=== PATIENT | male | born 1940 | race Caucasian/White ===

== ENCOUNTER 2017-04-11 07:17 | Inpatient (IN) | payer MEDICARE, OTHER ==
[2017-03-28 11:03] VITALS: BMI 35.0
--- NOTE | 2017-03-28 11:48 | PAT Medication Instructions ---
Service Date Mar 28, 2017. Current Home Medication List Aspirin (Aspirin Ec), 81 MG PO HS Atorvastatin (Lipitor), 80 MG PO HS Budesonide/Formoterol Fumarate (Symbicort 160/4.5 Inhaler ), 2 PUFFS INH BID Cholecalciferol (Vitamin D3), 1 TAB PO BID Cinnamon (Cinnamon), 1,000 MG PO BID Finasteride (Proscar), 5 MG PO QAM Levothyroxine Sodium (Levothyroxine Sodium), 1 TAB PO QAM Lisinopril (Zestril), 20 MG PO HS Metformin Hcl (Glucophage Ext Rel), 1,000 MG PO BID Sotalol Hcl (Sotalol Hcl), 0.5 TAB PO BID Tiotropium [place] (Spiriva Handihaler), 1 CAP INH QAM Warfarin Sod (Jantoven), 5 MG PO QPM PRN for D Medication Instructions For Your Scheduled Surgery Warfarin Sod (Jantoven), 5 MG PO QPM PRN (check with surgeon and family doctor for instructions) - Hold the following medications 2 weeks prior to surgery: Cinnamon (Cinnamon), 1,000 MG PO BID - Hold the following medications 48 hours prior to surgery: Metformin Hcl (Glucophage Ext Rel), 1,000 MG PO BID - Hold the following medications evening prior to surgery: Lisinopril (Zestril), 20 MG PO HS - Hold the following medications the morning of surgery: Cholecalciferol (Vitamin D3), 1 TAB PO BID - Take the following medications the morning of surgery with a sip of water: Tiotropium [place] (Spiriva Handihaler), 1 CAP INH QAM Sotalol Hcl (Sotalol Hcl), 0.5 TAB PO BID Levothyroxine Sodium (Levothyroxine Sodium), 1 TAB PO QAM Finasteride (Proscar), 5 MG PO QAM Budesonide/Formoterol Fumarate (Symbicort 160/4.5 Inhaler ), 2 PUFFS INH BID - Take the following medications as scheduled the night before surgery: Sotalol Hcl (Sotalol Hcl), 0.5 TAB PO BID Cholecalciferol (Vitamin D3), 1 TAB PO BID Budesonide/Formoterol Fumarate (Symbicort 160/4.5 Inhaler ), 2 PUFFS INH BID Aspirin (Aspirin Ec), 81 MG PO HS Atorvastatin (Lipitor), 80 MG PO HS If you have any questions please call us at [phone] or [phone] ( Shira) or [phone]
--- NOTE | 2017-03-28 12:33 | DIAGNOSTIC IMAGING REPORT ---
TWO VIEW CHEST CLINICAL HISTORY: Preoperative examination. FINDINGS: PA and lateral chest radiographs are obtained. No prior studies are available for comparison at the time of dictation. The heart is enlarged and there is atherosclerotic calcification of the thoracic aorta. The pulmonary vasculature is noncongested. Enlargement of the central pulmonary arteries suggests pulmonary artery hypertension. Nonspecific interstitial thickening is noted. Scattered calcified granulomas are observed. There is no airspace consolidation or pleural effusion. There is no pneumothorax. The skeletal structures are osteopenic. Degenerative change is present throughout the thoracic spine. An aortic stent graft is noted in the upper abdomen. IMPRESSION: Cardiomegaly with evidence of pulmonary artery hypertension. There is no active disease in the chest. Electronically signed by: Steffen Reich M.D. 03/28/2017 12:32 PM Dictated Date/Time: 03/28/2017 12:30 PM
[2017-03-28 12:35] LABS: BASO % 0.6 %; BASO ABS # 0.06 K/uL (0-0.2); COMPLETE YES; EOS % 3.7 %; HEMATOCRIT 43.5 % (42-52); IG% 0.3 %; LYMPH % 24.5 %; LYMPH ABS # 2.61 K/uL (1.2-3.4); MEAN CELL VOLUME 91.8 fL (80-100); MEAN CORPUSCULAR HEMOGLOBIN 30.6 pg (25-34); MEAN CORPUSCULAR HGB CONC 33.3 g/dl (32-36); MEAN PLATELET VOLUME 9.7 fL (7.4-10.4); NEUT % 63.9 %; PLATELET COUNT 200 K/uL (130-400); RED BLOOD COUNT 4.74 M/uL (4.7-6.1); WHITE BLOOD COUNT 10.64 K/uL (4.8-10.8)
[2017-03-28 12:36] LABS: URINE APPEARANCE CLEAR (CLEAR); URINE BILIRUBIN NEG (NEG); URINE COLOR YELLOW; URINE NITRITE NEG (NEG); URINE SPECIFIC GRAVITY 1.018 (1.000-1.030); UROBILINOGEN NEG (NEG)
[2017-03-28 12:40] LABS: MANUAL MICROSCOPIC REQUIRED? NO; REVIEW REQ? NO
[2017-03-28 14:03] LABS: BUN/CREATININE RATIO 16.5 (10-20); CALCIUM 9.9 mg/dl (8.5-10.1); CREATININE 1.3 mg/dl (0.60-1.40); POTASSIUM 5.4 mmol/L (3.5-5.1)
[2017-04-11] VITALS (10 sets, daily range): BP systolic 114–172; BP diastolic 73–89; PULSE 63–96; TEMP 36.5–36.8; O2SAT 94–97; Ht 175.3 cm; Wt 108.4 kg
[~2017-04-11] VITALS: Ht 175.3 cm; Wt 108.4 kg
[~2017-04-11 07:17] MED LIST: ASPI81TA28 PO; ATOR-26 PO; CEFAZOLIN 2000 MG/60 ML D5W IV SCH; CHOL1000 PO; CINN1CAP2 PO; FINA5TAB PO; LACTATED RINGER'S 1000ML 1,000 ML IV SCH; LEVO50TA6 PO; LISI-725 PO; METF1TAB53 PO; SOTA80TA PO; SPRIN/30 INH; SYMIN160 INH; WARF5TAB7 PO
[2017-04-11] MEDS ORDERED: MIDAZOLAM HCL 1 MG/ML 2ML VIAL ONE (08:10)
[2017-04-11] MEDS ORDERED: FENTANYL CITRATE INJ 50 MCG/1 ML 2 ML VIAL ONE ×5 (08:10→11:47)
[2017-04-11] MEDS ORDERED: EpHEDrine SULFATE INJ 50 MG/ML AMP IV PRN (08:15)
[2017-04-11] MEDS ORDERED: ATROPINE SULFATE 0.1 MG/ML 5ML SYR IV PRN (08:15)
[2017-04-11] MEDS ORDERED: FENTANYL CITRATE INJ 50 MCG/1 ML 2 ML VIAL IV PRN (08:15)
[2017-04-11] MEDS ORDERED: ONDANSETRON INJ 2 MG/ML 2 ML VIAL IV PRN ×2 (08:15→11:45)
--- NOTE | 2017-04-11 08:20 | History & Physical Bridge Note ---
H&P Re-Evaluation Bridge Note: I have examined the patient, reviewed the History & Physical and in the interval since the performance of the History & Physical I have noted the following changes of clinical significance: No changes noted
--- NOTE | 2017-04-11 08:22 | History and Physical ---
History & Physical Date Apr 11, 2017. Chief Complaint back and leg pain History of Present Illness The patient is a 76 year old male with complaints of Additional History Hepatic Disease: No Endocrine Disorder: No Kidney Disease: No Hypertension: No Heart Disease: No Bleeding Tendencies: No Infectious Diseases: No Allergies Coded Allergies: Morphine (Unverified Allergy, Unknown, ITCHING LOCALIZED SWELLING RASH, 09/16) Sulfa Antibiotics (Unverified Allergy, Unknown, UNKNOWN, 04/11/17) Home Medications Scheduled Aspirin (Aspirin Ec), 81 MG PO HS Atorvastatin (Lipitor), 80 MG PO HS Budesonide/Formoterol Fumarate (Symbicort 160/4.5 Inhaler ), 2 PUFFS INH BID Cholecalciferol (Vitamin D3), 1 TAB PO BID Cinnamon (Cinnamon), 1,000 MG PO BID Finasteride (Proscar), 5 MG PO QAM Levothyroxine Sodium (Levothyroxine Sodium), 1 TAB PO QAM Lisinopril (Zestril), 20 MG PO HS Metformin Hcl (Glucophage Ext Rel), 1,000 MG PO BID Sotalol Hcl (Sotalol Hcl), 0.5 TAB PO BID Tiotropium [place] (Spiriva Handihaler), 1 CAP INH QAM Scheduled PRN Warfarin Sod (Jantoven), 5 MG PO QPM PRN for D Physical Examination Skin: warm/dry, no rash Eyes: normal inspection, EOMI, sclerae normal ENT: normal ENT inspection, pharynx normal Head: normocephalic, atraumatic Neck: supple, no adenopathy, trachea midline Respiratory/Chest: lungs clear, normal breath sounds, no respiratory distress Cardiovascular: regular rate, rhythm, no edema, no murmur Abdomen / GI: normal bowel sounds, non tender Back: normal inspection Extremities: normal inspection, normal range of motion Neurologic/Psych: no motor/sensory deficits, alert, normal reflexes, oriented x 3 Diagnosis lumbar stenosis Plan of Treatment decompression fusion L2-S1
[2017-04-11 08:24] LABS: INR 1.1 (0.9-1.1); PARTIAL THROMBOPLASTIN RATIO 0.9; PROTHROMBIN TIME (PATIENT) 11.3 SECONDS (9.0-12.0)
[2017-04-11] MEDS ORDERED: BACITRACIN 50000 UNIT VIAL ONE (08:44)
[2017-04-11] MEDS ORDERED: SODIUM CHLORIDE 0.9% PF 50 ML VIAL ONE (08:44)
[2017-04-11] MEDS ORDERED: BUPIVACAINE/EPINEPHRINE 0.25% 1:200,000 30 ML VIAL ONE (08:44)
[2017-04-11] MEDS ORDERED: ALBUMIN HUMAN 5% 12.5 GM/250 ML VIAL IV ONE (08:52)
[2017-04-11] MEDS ORDERED: HYDROmorphone INJ 2 MG/ML SYR/VIAL ONE ×3 (09:27→11:47)
[2017-04-11] MEDS ORDERED: SODIUM CHLORIDE 0.9% 1000ML 1,000 ML IV SCH (11:42)
[2017-04-11] MEDS ORDERED: ESMOLOL HCL 10 MG/ML 10 ML VIAL ONE ×2 (11:45→11:49)
[2017-04-11] MEDS ORDERED: FAMOTIDINE 20 MG TAB PO PRN (11:45)
[2017-04-11] MEDS ORDERED: BISACODYL 10 MG SUPP PR PRN (11:45)
[2017-04-11] MEDS ORDERED: ACETAMINOPHEN IV 100 ML IV PRN (11:45)
[2017-04-11] MEDS ORDERED: DO NOT ADMINISTER PNEUMOCOCCAL VACCINE PRN ×2 (11:45)
[2017-04-11] MEDS ORDERED: PROPOFOL IV EMULSION 10 MG/ML 20 ML VIAL IV ONE ×2 (11:45→11:47)
[2017-04-11] MEDS ORDERED: hydrOXYzine HCL 25 MG TAB PO PRN (11:45)
[2017-04-11] MEDS ORDERED: MAGNESIUM HYDROXIDE SUSP 30 ML UDC PO PRN (11:45)
[2017-04-11] MEDS ORDERED: DO NOT ADMINISTER FLU VACCINE PRN ×3 (11:45)
[2017-04-11] MEDS ORDERED: LABETALOL HCL IV 5 MG/ML 20ML IV ONE (11:45)
[2017-04-11] MEDS ORDERED: LIDOCAINE HCL 2% 2 ML VIAL (20MG/ML) ONE (11:45)
[2017-04-11] MEDS ORDERED: NALOXONE HCL 0.4 MG/1 ML VIAL/CARP IV PRN ×2 (11:45)
[2017-04-11] MEDS ORDERED: PROMETHAZINE HCL INJ 12.5 MG in SODIUM CHLORIDE 0.9% 50ML 50 ML IV PRN (11:45)
[2017-04-11] MEDS ORDERED: DEXAMETHASONE SOD INJ 4 MG/ML VIAL ONE (11:45)
[2017-04-11] MEDS ORDERED: EpHEDrine SULFATE 50MG/5ML SYR ONE (11:45)
[2017-04-11] MEDS ORDERED: METOCLOPRAMIDE HCL INJ 5 MG/ML 2 ML VIAL IV PRN (11:45)
[2017-04-11] MEDS ORDERED: SOD PHOSPHATE/SOD BIPHOSPHATE ENEMA 132 ML BTL PR PRN (11:45)
[2017-04-11] MEDS ORDERED: ALUMINUM/MAGNESIUM SUSP 30 ML UDC PO PRN (11:45)
[2017-04-11] MEDS ORDERED: ONDANSETRON INJ 2 MG/ML 2 ML VIAL ONE ×2 (11:45→11:49)
[2017-04-11] MEDS ORDERED: LORAZEPAM 0.5 MG TAB PO PRN (11:45)
[2017-04-11] MEDS ORDERED: ROCURONIUM BROMIDE 10 MG/ML 5 ML VIAL ONE (11:45)
[2017-04-11] MEDS ORDERED: ACETAMINOPHEN 500 MG TAB PO PRN (11:45)
[2017-04-11] MEDS ORDERED: LORAZEPAM INJ 0.5 MG in SYRINGE 0 ML IV PRN (11:45)
--- NOTE | 2017-04-11 11:48 | DIAGNOSTIC IMAGING REPORT ---
Lumbar spine LUMBAR SPINE 2 OR 3 VIEW CLINICAL HISTORY: L2-S1 DECOMPRESSION/FUSION/INTERBODY TECHNIQUE: Image intensifier COMPARISON STUDY: None FINDINGS: Image intensifier used for lumbar laminectomy and fusion IMPRESSION: Image intensifier utilization for lumbar laminectomy and fusion Electronically signed by: Tip Oreilly M.D. 04/11/2017 11:47 AM Dictated Date/Time: 04/11/2017 11:46 AM
[2017-04-11] MEDS ORDERED: NEOSTIGMINE METHYLSULFATE 1 MG/ML 10ML VIAL ONE (11:49)
[2017-04-11] MEDS ORDERED: GLYCOPYRROLATE INJ 0.2 MG/ML VIAL ONE (11:49)
--- NOTE | 2017-04-11 11:50 | [facility] Operative Report ---
Operative Report Operative Date Apr 11, 2017. Pre-Operative Diagnosis Lumbar Stenosis Post-Operative Diagnosis Lumbar Stenosis Procedure(s) Performed #1 lumbar decompression medial facetectomies foraminotomies L2 3 L3 4 045 L5-S1. 2 posterior spinal fusion L2-3 L3 4 L4 5 L5-S1. #3 placement of posterior segmental instrumentation L2 to S1 including a cross-link. #4 interbody fusion L4 5. #5 placement of peek cage 11 x 22 mm at L4 5. 6 placement of locally harvested morcellized autograft in the posterior lateral gutters. #7 placement of infuse collagen sponge combined with Master graft in the posterior lateral gutters and DBM in the interbody space. Surgeon Dr. Marc Rutledge Powder Worker Surgeon(s) Esthela Sandoval PA-C Estimated Blood Loss 800ml Findings Severe spinal stenosis Specimens None per surgeon Description of Procedure Patient was met with preoperatively case discussed all questions were addressed. At that point patient was taken back to the operative suite and after undergoing successful general intubation the form she was placed in a prone position on the Jose table on top of the Babatunde frame. All bony prominences were well-padded eyes were inspected to ensure there is no external pressure placed upon them. This point the lumbar spine was prepped and draped in the normal sterile fashion. Sharp dissection with the assistance of Bovie cautery performed onto an exposing the lamina and transverse processes of L2 3 4 5 and the sacral alar bilaterally. Color cephalad fashion laminectomy bilateral medial facetectomies of L543 and 2 was performed addressing severe lateral recess and foraminal stenosis. After this complete pedicle screws were placed in L2 3 4 5 S1 levels bilaterally with the assistance of fluoroscopy and the probably size mu placed. Through a transforaminal approach on the right a complete discectomy of L4 5 was performed and plate create a subcortical bleeding bone and a 11 x 26 mm peek cage filled with DBM tapped in position. Rods and locked and final position a cross-link locked in position. Transverse processes of 2345 and the sacral alar burred to subcortical bleeding bone. Infuse collagen sponge mask graft locally harvested morcellized autograft placed in the posterior lateral gutters 15 round WILLIAM drain inserted. Incision was then closed with 1 Vicryl in the fascia 2-0 Vicryl subcutaneously for Monocryl for Taylor closure Steri-Strips sterile dressing placed patient was taken to PACU stable condition. Please note Esthela Moreno was present throughout the entire procedure involved in patient positioning complex portions of the procedure and final skin closure. I attest to the content of the Intraoperative Record and any orders documented therein. Any exceptions are noted below.
[2017-04-11] MEDS ORDERED: PHARMACY GLYCEMIC MGMT CONSULT PRN (11:51)
[2017-04-11] MEDS ORDERED: FLOSEAL HEMOSTATIC MATRIX 10ML TOP ONE (11:53)
[2017-04-11] MEDS ORDERED: HYDROmorphone HCL 0.5MG/ML 50 ML CASSETTE ONE (12:10)
--- NOTE | 2017-04-11 12:39 | Anesthesiology Progress Note ---
Anesthesia Post Op Note Date & Time Apr 11, 2017 at 12:39 Vital Signs Pain Intensity: 0 Vital Signs Past 12 Hours Date Time Temp Pulse Resp B/P (MAP) Pulse Ox O2 Delivery O2 Flow Rate FiO2 04/11/17 12:35 37.1 74 21 165/86 98 Nasal Cannula 4 04/11/17 12:25 71 16 174/75 98 Mask 8 04/11/17 12:15 75 19 169/72 98 Mask 8 04/11/17 12:05 36.5 81 16 169/72 97 Mask 8 04/11/17 08:16 36.8 63 20 172/89 94 Room Air Notes Mental Status: alert / awake / arousable, participated in evaluation Pt Amnestic to Procedure: Yes Nausea / Vomiting: adequately controlled Pain: adequately controlled Airway Patency, RR, SpO2: stable & adequate BP & HR: stable & adequate Hydration State: stable & adequate Anesthetic Complications: no major complications apparent
[2017-04-11] MEDS ORDERED: HYDROmorphone INJ 1 MG/ML SYR IV PRN (14:00)
--- NOTE | 2017-04-11 14:37 | Pharmacy Progress Note ---
Glycemic Control Intl Consult Date of Service Apr 11, 2017. Scope Glycemic Pharmacist consulted by Dr Rutledge on 04/11/2017 for glycemic control and to write orders per [facility] inpatient glycemic control protocol Objective Weight (Kilograms): 108.400 Accuchecks BSG (last 24hrs): Test 04/11/17 07:56 04/11/17 12:17 Bedside Glucose 161 mg/dl (70-99) 157 mg/dl (70-99) Recent Pertinent Medications Outpatient Anti-diabetic Regimen: * metformin 1 gm XR PO BID Risk Factors for Insulin Resistance: * Steroids: dexamethasone 12 mg IV x 1 in OR then dexamethasone 6 mg IV x 3 doses * Recent Surgery: lumbar surgery POD 0 * Diet: type 2 diabetic diet Assessment & Plan ASSESSMENT: * ADA & AACE recommend a goal blood sugar range 140-180 mg/dl for the majority of critically ill & non-critically ill patients. However, more stringent targets may be selected in individual cases. Will utilize more stringent goal of 110-140mg/dl based on patient age & comorbidities. Additionally, tighter glycemic control is warranted to facilitate wound healing. * Mr Mcconnell is a 76 y/o M who is admitted under Dr Rutledge's service for lumbar surgery. He has a PMH of diabetes controlled on oral medications. He has an unknown A1C. He received large doses of steroids in the OR and after surgery; this necessitates aggressive insulin dosing. * For today, Lantus will be started at weight based stress of 3 (Lantus 25 units x 1), this will be reduced to weight based stress of 2 for tomorrow morning and weight based stress of 1 for tomorrow evening. By POD 2, Lantus requirements should be greatly reduced. Overnight accuchecks are added to ensure adequate coverage overnight. * For correctional insulin, weight based stress of 2 will be adopted. I estimate that by POD 2, oral medications will be resumed assuming kidney function is normal and oral intake is excellent. At that point, I will loosen the correctional insulin. * Pt is maintained on oral antidiabetic agents as an outpatient * Oral agents are not recommended for inpatient use d/t drug interactions, changing PO intake, and difficulty titrating for acute hyper/hypoglycemia. ADA recommends re-initiating outpatient oral agents 1-2 days prior to discharge if/ when appropriate if they were held on admission. * Will hold oral agents for admission and utilize SQ basal bolus insulin regimen which is the recommended regimen for inpatient glycemic control. * Will initiate weight based insulin dosing for insulin josee patient and titrate based on BSG trends. PLAN FOR INPATIENT GLYCEMIC CONTROL: * Holding outpatient oral diabetes medications * Basal insulin with LANTUS 25 units SQ x 1 tonight, 18 units SQ x 1 tomorrow morning, and then 10 units SQ x 1 tomorrow evening. * Correctional Insulin with NOVOLOG per scale ACHS + at midnight and 0400 * Goal Range: Low 110 mg/dL - High 140 mg/dL * Correction Factor: 15 mg/dL/unit * Nutritional / Prandial insulin per carb ratio of 1 unit per 5 grams CHO consumed * Please note that the plan above was derived based on current level of insulin resistance and hospital stress. These recommendations are appropriate for inpatient admission only. Plan of care upon discharge will need to be reassessed to avoid potential outpatient hypo/hyperglycemia. Thank you.
[2017-04-11] MEDS: HYDROmorphone HCL 0.5MG/ML 50 ML CASSETTE IV PRN ×2 (15:19→23:12)
[2017-04-11] MEDS: SODIUM CHLORIDE 0.9% 1000ML 1,000 ML IV SCH ×2 (15:23→21:48)
[2017-04-11] MEDS: CEFAZOLIN IV 2,000 MG in DEXTROSE 5% 50ML 50 ML IV SCH ×2 (15:24→21:46)
[2017-04-11] MEDS: INSULIN ASPART 100 UNITS/ML 3 ML PEN SC SCH ×3 (15:26→21:46)
--- NOTE | 2017-04-11 16:42 | Medical Consult ---
Consultation Date of Consultation: Apr 11, 2017. Attending Physician: Marc Rutledge D.O. History of Present Illness Bandar Mcconnell is a 76yo man with PMH of lumbar stenosis with neurogenic claudication, h/o 4 PEs (last in 2003, on coumadin), CAD s/p stent in 2007, DM II and renal artery stenosis who is s/p a spinal decompression fusion of L2-S1 performed today (POD#0). Pt states that pain is well controlled and denies any weakness, tingling or numbness to his lower extremities. No chest pain, shortness of breath, nausea or vomiting. Is urinating with mccann in place. Of note, patient is currently not on anticoagulation s/p spinal procedure but does have a significant history of coagulability with multiple PEs. Past Medical/Surgical History Medical Problems: (1) COPD (chronic obstructive pulmonary disease) Status: Chronic (2) Coronary artery disease Permanent Comment: s/p RCA stent in 2007 Status: Chronic (3) DM II (diabetes mellitus, type II), controlled Status: Chronic (4) HLD (hyperlipidemia) Status: Chronic (5) HTN (hypertension) Status: Chronic (6) PE (pulmonary thromboembolism) Permanent Comment: x4; most recent PE in 2003 Status: Chronic (7) Renal artery stenosis Status: Chronic Surgical Problems: (1) History of AAA (abdominal aortic aneurysm) repair Status: Chronic (2) History of appendectomy Status: Chronic (3) History of arthroscopy of left shoulder Status: Chronic (4) S/P lateral meniscectomy of left knee Status: Chronic (5) Status post lumbar spine surgery for decompression of spinal cord Permanent Comment: Decompression fusion L2-S1 Status: Chronic Family History Diabetes mellitus MOTHER FH: CAD (coronary artery disease) FATHER Stroke BROTHER Social History Smoking Status: Former Smoker (quit in 2003) Smokeless Tobacco Use: No Alcohol Use: socially Drug Use: none Allergies Coded Allergies: Morphine (Unverified Allergy, Unknown, ITCHING LOCALIZED SWELLING RASH, 09/16) Sulfa Antibiotics (Unverified Allergy, Unknown, UNKNOWN, 04/11/17) Home Medications Home Meds and Scripts Medications Dose Route/Sig Max Daily Dose Days Date Category Dose Instructions Jantoven (Warfarin Sodium) 5 Mg Tab 5 Mg PO QPM PRN 03/28/17 Reported FOLLOWS PATTERN 5 MG/5 MG/7.5 MG AND REPEAT Proscar (Finasteride) 5 Mg Tab 5 Mg PO QAM 03/28/17 Reported Levothyroxine Sodium 50 Mcg Tab 1 Tab PO QAM 90 03/28/17 Reported Cinnamon 500 Mg Cap 1,000 Mg PO BID 03/28/17 Reported Lipitor (Atorvastatin Calcium) 80 Mg Tab 80 Mg PO HS 03/28/17 Reported Sotalol Hcl 80 Mg Tab 0.5 Tab PO BID 90 03/28/17 Reported Zestril (Lisinopril) 20 Mg Tab 20 Mg PO HS 03/28/17 Reported Glucophage Ext Rel (Metformin Hcl) 1,000 Mg Tab 1,000 Mg PO BID 03/28/17 Reported Aspirin Ec (Aspirin) 81 Mg Tab 81 Mg PO HS 03/28/17 Reported Symbicort 160/4.5 Inhaler (Budesonide/Formoterol Fumarate) Aero 2 Puffs INH BID 03/28/17 Reported Spiriva Handihaler (Tiotropium [place]) 30 Puff/540 Mcg Aerp 1 Cap INH QAM 03/28/17 Reported Vitamin D3 (Cholecalciferol) 1,000 Unit Tab 1 Tab PO BID 90 03/28/17 Reported Current Inpatient Medications Current Inpatient Medications Medications (Trade) Dose Ordered Sig/Sunita Route Start Time Stop Time Status Last Admin Dose Admin Cefazolin Sodium 60 ml @ 100 mls/hr PREOP IV 04/11/17 06:00 04/11/17 18:00 Dexamethasone Sodium Phosphate 6 mg/Syringe 1.5 ml @ 1 mls/min Q8H IV 04/11/17 16:00 04/12/17 08:02 Promethazine HCl 12.5 mg/Sodium Chloride 50.5 ml @ 202 mls/hr Q6H PRN IV 04/11/17 11:45 05/11/17 11:44 Ondansetron HCl (Zofran Inj) 4 mg Q6H PRN IV 04/11/17 11:45 05/11/17 11:44 Metoclopramide HCl (Reglan Inj) 10 mg Q6H PRN IV 04/11/17 11:45 05/11/17 11:44 Lorazepam (Ativan Tab) 0.5 mg Q8H PRN PO 04/11/17 11:45 05/11/17 11:44 Lorazepam 0.5 mg/ Syringe 0.25 ml @ 1 mls/min Q8H PRN IV 04/11/17 11:45 05/11/17 11:44 Pneumococcal Polysaccharide Vaccine 1 ea PRN PRN N/A 04/11/17 11:45 05/11/17 11:44 Influenza Virus Vacc Triv Types A&B 1 ea PRN PRN N/A 04/11/17 11:45 05/11/17 11:44 Polyethylene (Miralax Powder Packet) 17 gm Q6 PO 04/13/17 06:00 05/13/17 05:59 Bisacodyl (Dulcolax Supp) 10 mg DAILY PRN UT 04/11/17 11:45 05/11/17 11:44 Magnesium Hydroxide (Milk Of Magnesia Susp) 30 ml DAILY PRN PO 04/11/17 11:45 05/11/17 11:44 Hydromorphone HCl (Dilaudid Inj) 0.5 mg Q3H PRN IV 04/12/17 06:00 04/26/17 05:59 Oxycodone HCl (Roxicodone Immediate Rel Tab) 5-10mg prn moderate to sev... Q4H PRN PO 04/12/17 06:00 04/26/17 05:59 Cefazolin Sodium 2000 mg/Dextrose 60 ml @ 100 mls/hr Q8H IV 04/11/17 14:00 04/11/17 22:35 04/11/17 15:24 100 MLS/HR Sodium Chloride 1,000 ml @ 150 mls/hr Q6H40M IV 04/11/17 11:42 05/11/17 11:41 04/11/17 15:23 150 MLS/HR Acetaminophen (Tylenol Tab) 1,000 mg Q8H PRN PO 04/11/17 11:45 05/11/17 11:44 Acetaminophen 100 ml @ 400 mls/hr Q8H PRN IV 04/11/17 11:45 05/11/17 11:44 Naloxone HCl (Narcan Inj) 0.1 mg Q5M PRN IV 04/11/17 11:45 05/11/17 11:44 Senna/Docusate Sodium (Senokot S Tab) 2 tab HS PO 04/11/17 21:00 05/11/17 20:59 Sodium Biphosphate/ Sodium Phosphate (Fleet Enema) 132 ml ONE PRN UT 04/11/17 11:45 05/11/17 11:44 Hydroxyzine HCl (Vistaril Tab) 25 mg Q8H PRN PO 04/11/17 11:45 05/11/17 11:44 Al Hydroxide/Mg Hydroxide (Maalox Susp) 30 ml Q6H PRN PO 04/11/17 11:45 05/11/17 11:44 Famotidine (Pepcid Tab) 20 mg Q12 PRN PO 04/11/17 11:45 05/11/17 11:44 Diphenhydramine HCl (Benadryl Cap) 25 mg Q6H PRN PO 04/11/17 11:45 05/11/17 11:44 Miscellaneous Information (Discontinue DIAL EQUIPMENT ENGINEER) 1 ea TODAY@0600 N/A 04/12/17 06:00 04/12/17 06:01 Naloxone HCl (Narcan Inj) 0.1 mg Q5M PRN IV 04/11/17 11:45 04/12/17 06:00 Hydromorphone HCl (Dilaudid Senior Electronics Design Engineer) 25 mg PRN PRN IV 04/11/17 11:45 04/12/17 06:00 04/11/17 15:19 25 MG Sodium Chloride 1,000 ml @ 15 mls/hr Q24H IV 04/11/17 11:42 04/12/17 06:00 Aspirin (Ecotrin Tab) 81 mg HS PO 04/11/17 21:00 05/11/17 20:59 Atorvastatin Calcium (Lipitor Tab) 80 mg HS PO 04/11/17 21:00 05/11/17 20:59 Budesonide/ Formoterol Fumarate (Symbicort 160/ 4.5 Inh) 2 puffs BID INH 04/11/17 21:00 05/11/17 20:59 Finasteride (Proscar Tab) 5 mg QAM PO 04/12/17 09:00 05/12/17 08:59 Levothyroxine Sodium (Synthroid Tab) 50 mcg DAILYBB PO 04/12/17 06:00 05/12/17 05:59 Lisinopril (Zestril Tab) 20 mg HS PO 04/11/17 21:00 05/11/17 20:59 Sotalol HCl (Betapace Tab) 40 mg BID PO 04/11/17 21:00 05/11/17 20:59 Tiotropium [place] (Spiriva Handihaler Inhaler) 1 puff QAM INH 04/12/17 09:00 05/12/17 08:59 Miscellaneous Information (Consult Glycemic Management Pharmacy) 1 ea UD PRN N/A 04/11/17 11:51 05/11/17 11:50 Hydromorphone HCl (Dilaudid Inj) 1 mg Q3H PRN IV 04/12/17 06:00 04/26/17 05:59 Insulin Aspart (novoLOG ASPART) SLIDING SCALE ACHS SC 04/11/17 14:00 05/11/17 13:59 04/11/17 15:26 10 UNITS Insulin Glargine (Lantus Solostar Pen) 25 units NOW ONCE NC 04/11/17 17:00 04/11/17 17:01 Insulin Glargine (Lantus Solostar Pen) 18 units QAM NC 04/12/17 09:00 04/12/17 09:01 Insulin Glargine (Lantus Solostar Pen) 10 units QPM NC 04/12/17 21:00 04/12/17 21:01 Insulin Aspart (novoLOG ASPART) SLIDING SCALE TODAY@0000,0400 NC 04/12/17 00:00 04/12/17 04:01 Review of Systems ROS per HPI, all other systems reviewed and negative. Physical Exam Date Time Temp Pulse Resp B/P (MAP) Pulse Ox O2 Delivery O2 Flow Rate FiO2 04/11/17 15:10 36.6 92 18 114/78 (90) 97 Nasal Cannula 4.0 04/11/17 14:23 36.8 91 17 138/87 (104) 96 Nasal Cannula 4.0 04/11/17 14:09 95 Nasal Cannula 4.0 04/11/17 14:01 95 Nasal Cannula 4.0 04/11/17 13:48 36.5 80 16 144/85 (104) 96 Nasal Cannula 4.0 04/11/17 13:00 65 12 160/83 96 Nasal Cannula 4 04/11/17 12:45 72 17 167/84 96 Nasal Cannula 4 04/11/17 12:35 37.1 74 21 165/86 98 Nasal Cannula 4 04/11/17 12:25 71 16 174/75 98 Mask 8 04/11/17 12:15 75 19 169/72 98 Mask 8 04/11/17 12:05 36.5 81 16 169/72 97 Mask 8 04/11/17 08:16 36.8 63 20 172/89 94 Room Air General Appearance: no apparent distress, + obese Head: normocephalic Eyes: normal inspection Neck: supple Respiratory/Chest: chest non-tender, lungs clear, normal breath sounds Cardiovascular: regular rate, rhythm Abdomen/GI: normal bowel sounds, non tender, soft Back: + pertinent finding (S/p back surgery. Drain visualized with 45cc of serosanguinous fluid. Pedal strength against resistance strong bilaterally. ) Extremities/Musculoskelatal: no calf tenderness, no pedal edema Neurologic/Psych: no motor/sensory deficits, normal mood/affect, oriented x 3 Skin: normal color, warm/dry Lymphatic: no adenopathy Laboratory Results Last 24 Hours Test 04/11/17 07:56 04/11/17 08:06 04/11/17 11:37 04/11/17 12:17 Bedside Glucose 161 mg/dl 157 mg/dl Prothrombin Time 11.3 SECONDS Prothromb Time International Ratio 1.1 Activated Partial Thromboplast Time 24.2 SECONDS Partial Thromboplastin Ratio 0.9 Hemoglobin 11.3 g/dL Hematocrit 33.0 % Assessment & Plan Pt is POD#0 s/p spinal decompression fusion L2-S1 and is doing well. S/p Decompression fusion L2-S1 -followed by ortho -activity and would care orders as per ortho -pain control with bowel regimen -will monitor H&H, transfuse PRN History of PEs -discussed restarting anticoagulation with Dr. Rutledge. Plan to continue monitoring drain output but plan to resume anticoagulation on Sunday DM II, controlled -on sliding scale insulin plus basal -pharmacy consulted by ortho for glycemic management CAD s/p RCA stent in 2007, HTN -negative nuclear stress test in 2016 -continue baby aspirin, atorvastatin H/o paroxysmal afib -rhythm controlled on sotalol -on Coumadin, however currently being held due to surgery DVT ppx -as per ortho Thank you for this consultation. We will follow the patient with you during their hospital stay. You can reach a member of the [facility] Hospitalist Team 23/04 via pager @ . Attending Addendum Pt was seen and examined. Agreed with Margarita ARMANDO exam, assessment and Plan. Failed outpatient conservative management. S/P decompression and fusion surgery performed by Dr. Rutledge. Pt lying in bed with no distress. Denies any chest pain , palpitation, dizziness and SOB. General- no acute distress Head- atraumatic Eyes- PERRL, EOMI ENT- oropharynx clear Neck- supple, no JVD Lungs- clear to auscultation Heart- regular rhythm A/P S/P L2-S1 DECOMPRESSION / FUSION - POD#0 - continue pain control - Incentive spirometry - PT/OT -Hbg stable Hx PE -Anticoagulant has been on hold -Will resume anticoagulant once bleeding control DVT PROPHYLAXIS - deferred to ortho CODE STATUS FULL CODE
[2017-04-11] MEDS: DEXAMETHASONE INJ 6 MG in SYRINGE 0 ML IV SCH (16:46)
[2017-04-11] MEDS ORDERED: INSULIN GLARGINE SOLOSTAR 100 UNITS/ML 3 ML PEN SC ONE (17:00)
[2017-04-11] MEDS: ATORVASTATIN 40 MG TAB PO SCH (21:35)
[2017-04-11] MEDS: DOCUSATE SODIUM/SENNA 50/8.6MG TAB PO SCH (21:35)
[2017-04-11] MEDS: BUDESONIDE/FORMOTEROL FUMARATE 160/4.5 60 PUFFS/INHALER INH SCH (21:36)
[2017-04-11] MEDS: SOTALOL HCL 80 MG TAB PO SCH (21:36)
[2017-04-11] MEDS: ASPIRIN 81 MG ECTAB PO SCH (21:36)
[2017-04-11] MEDS: LISINOPRIL 20 MG TAB PO SCH (21:36)
[2017-04-12] MEDS: DEXAMETHASONE INJ 6 MG in SYRINGE 0 ML IV SCH ×2 (00:31→08:17)
[2017-04-12] MEDS: INSULIN ASPART 100 UNITS/ML 3 ML PEN SC SCH ×6 (00:38→21:56)
[2017-04-12] MEDS: SODIUM CHLORIDE 0.9% 1000ML 1,000 ML IV SCH (02:57)
[2017-04-12 04:01] VITALS: BP 122/70; PULSE 71; TEMP 36.6; O2SAT 95
[2017-04-12] MEDS: LEVOTHYROXINE 50 MCG TAB PO SCH (05:58)
[2017-04-12] MEDS ORDERED: HYDROmorphone INJ 0.5 MG/0.5 ML SYR IV PRN (06:00)
[2017-04-12] MEDS ORDERED: DC PCA SCH (06:00)
[2017-04-12] MEDS ORDERED: HYDROmorphone INJ 1 MG/ML SYR IV PRN (06:00)
[2017-04-12 06:16] LABS: COMPLETE YES; HEMATOCRIT 32.3 % (42-52); IG% 0.2 %; LYMPH % 11.9 %; MEAN CELL VOLUME 92.3 fL (80-100); MEAN CORPUSCULAR HEMOGLOBIN 30.6 pg (25-34); MEAN CORPUSCULAR HGB CONC 33.1 g/dl (32-36); MEAN PLATELET VOLUME 9.4 fL (7.4-10.4); MONO % 4.7 %; NEUT % 83.2 %; PLATELET COUNT 177 K/uL (130-400); WHITE BLOOD COUNT 10.94 K/uL (4.8-10.8)
--- NOTE | 2017-04-12 06:35 | Clinical Documentation Query ---
Dr. SCHMIDT TUNTUTULIAK : CLINICAL DOCUMENTATION QUERY Patient is a 76 year old male who on 04/11 underwent elective posterior lumbosacral decompression and fusion. H&P states no PMH. However, home medications include: Aspirin (Aspirin Ec), 81 MG PO HS Atorvastatin (Lipitor), 80 MG PO HS Budesonide/Formoterol Fumarate (Symbicort 160/4.5 Inhaler ), 2 PUFFS INH BID Cholecalciferol (Vitamin D3), 1 TAB PO BID Cinnamon (Cinnamon), 1,000 MG PO BID Finasteride (Proscar), 5 MG PO QAM Levothyroxine Sodium (Levothyroxine Sodium), 1 TAB PO QAM Lisinopril (Zestril), 20 MG PO HS Metformin Hcl (Glucophage Ext Rel), 1,000 MG PO BID Sotalol Hcl (Sotalol Hcl), 0.5 TAB PO BID Tiotropium [place] (Spiriva Handihaler), 1 CAP INH QAM As appropriate, consider documentation as suggested below. Thank you. In your clinical opinion is this patient being managed for: ( ) COPD, DM type II, hyperlipidemia, hypertension, renal artery stenosis, BPH ( ) Other explanation of clinical findings (Please Explain) ( ) Unable to determine (Please Define) ( ) Need to Discuss ( ) Not Agree The medical record reflects the following clinical findings, treatment, and risk factors. Clinical Indicators: As above Treatment: As above Risk Factors: n/a Please clarify and document your clinical opinion in the progress notes and discharge summary. Terms such as "probable", "suspected", "likely", "questionable", "possible", or "still to be ruled out" are acceptable. IF IN AGREEMENT, YOU MUST DOCUMENT ABOVE DIAGNOSTIC STATEMENT IN DAILY PROGRESS NOTES AND DISCHARGE SUMMARY. This document is not part of the patient's record. Thank You, Kaveh Wagner, RN [phone]
[2017-04-12] MEDS ORDERED: NURSING DECISION MEDICATION ORDER SCH (06:45)
[2017-04-12 06:46] LABS: BUN/CREATININE RATIO 13.5 (10-20); CALCIUM 7.8 mg/dl (8.5-10.1); CREATININE 1.1 mg/dl (0.60-1.40)
[2017-04-12 07:01] LABS: ESTIMATED AVERAGE GLUCOSE 157 mg/dl; HA1C FLAG Normal (Normal)
[2017-04-12 08:05] VITALS: BP 110/66; PULSE 80; TEMP 36.6; O2SAT 96
[2017-04-12 08:08] VITALS: O2SAT 96
--- NOTE | 2017-04-12 08:08 | Progress Note ---
Progress Note Date of Service Apr 12, 2017. Progress Note doing well, no leg pain. s/p decomp fusion, PT today, advance bowel reg
[2017-04-12] MEDS: BUDESONIDE/FORMOTEROL FUMARATE 160/4.5 60 PUFFS/INHALER INH SCH ×2 (08:18→21:44)
[2017-04-12] MEDS: OXYCODONE HCL IR 5 MG TAB (IMMEDIATE RELEASE) PO PRN ×3 (08:18→22:00)
[2017-04-12] MEDS: TIOTROPIUM BROMIDE 5 PUFF/90 MCG INH INH SCH (08:19)
[2017-04-12] MEDS: SOTALOL HCL 80 MG TAB PO SCH ×2 (08:20→21:49)
[2017-04-12] MEDS: FINASTERIDE 5 MG TAB PO SCH (08:21)
[2017-04-12] MEDS ORDERED: INSULIN GLARGINE SOLOSTAR 100 UNITS/ML 3 ML PEN SC SCH ×2 (09:00→21:00)
--- NOTE | 2017-04-12 10:06 | Anesthesiology Progress Note ---
Anesthesia Post Op Note Date & Time Apr 12, 2017 at 10:05 Vital Signs Pain Intensity: 6.0 Vital Signs Past 12 Hours Date Time Temp Pulse Resp B/P (MAP) Pulse Ox O2 Delivery O2 Flow Rate FiO2 04/12/17 08:08 96 Nasal Cannula 2.0 04/12/17 08:05 36.6 80 14 110/66 (81) 96 Nasal Cannula 2.0 04/12/17 04:01 36.6 71 18 122/70 (87) 95 Nasal Cannula 2.0 04/12/17 00:30 Nasal Cannula 2.0 04/11/17 22:45 36.5 87 18 144/85 (104) 95 Nasal Cannula 2.0 Notes Mental Status: alert / awake / arousable, participated in evaluation Pt Amnestic to Procedure: Yes Nausea / Vomiting: adequately controlled Pain: adequately controlled Airway Patency, RR, SpO2: stable & adequate BP & HR: stable & adequate Hydration State: stable & adequate Anesthetic Complications: no major complications apparent
[2017-04-12 11:29] VITALS: BP 104/58; PULSE 76; TEMP 36.9; O2SAT 90
[2017-04-12 15:00] VITALS: BP 101/61; PULSE 67; TEMP 36.5; O2SAT 93
[2017-04-12] MEDS ORDERED: RXC5 PO (17:11)
--- NOTE | 2017-04-12 17:12 | Discharge Instructions ---
Discharge Instructions Date of Service Apr 12, 2017. Admission Reason for Admission: Lumbar Spinal Stenosis Discharge Discharge Diagnosis / Problem: lumbar stenosis Discharge Goals Goal(s): Improve function Activity Recommendations Activity Limitations: per Instructions/Follow-up section . Instructions / Follow-Up Instructions / Follow-Up ACTIVITY RECOMMENDATIONS: SELF CARE INSTRUCTIONS AFTER THORACIC/LUMBAR FUSIONS 1. You may walk to your tolerance. It is good exercise for your legs and back. Expect some back and intermittent leg aches and pains. 2. You may perform "counter-top" level activities (make a sandwich, rgant with a project, etc.). 3. No bending or lifting of more than 10 pounds or back twisting of any nature (roll like a log when turning in bed). 4. You may ride in a car for 20-30 minutes at a time. No driving until after your first visit with your doctor. 5. Frequent changes of position and restricting sitting to 30 minutes at a time will help limit the amount of back spasms and stiffness you may experience. 6. You may discontinue the use of ambulatory aids (cane, crutches, etc.) once your strength and confidence allow. 7. You may drying supervisor the shower and let water strike your incision when you arrive home at least once daily. Do not take a tub bath, sit in a hot tub or go into a swimming pool until after your first recheck in the office. SPECIAL CARE INSTRUCTIONS: VERY IMPORTANT TO READ AND REVIEW A. Your surgical incision has been closed with a cosmetic suture under the skin that will dissolve in about 6 weeks. In 14 days, you can use a pair of clean scissors and cut the suture that is left outside of the skin at the ends of your incision. 1. The small skin tapes can be removed 7 days after surgery if they have not fallen off by that point. 2. You may keep the wound open to air as much as possible to promote healing after post-op day number 5 unless told otherwise by your doctor. 3. If you think the wound looks like it is becoming infected (redness or worsening drainage) and/or you are experiencing fever, chill or worsening back pain and muscle spasms, contact the office so that we may evaluate you as soon as possible. B. Complications are uncommon, but please contact us if you have any signs or symptoms of: 1. wound infection (fever higher than 102.5 degrees F, redness, separation of wound, drainage, or increasing pain from the incision) 2. blood clots in legs (pain, swelling, redness and warmth in legs) 3. urinary tract infection (fever higher than 102.5 degrees F, burning upon urination or increased frequency of urination) 4. nerve problems (inability to walk on your toes or heels, numbness, loss of bowel or bladder control) 5. any other symptoms that concern you C. Please call the office at if you have any concerns or questions about your operation or recovery. D. No smoking! Smoking drastically decreases the chance of a solid fusion. E. Do not take any anti-inflammatory medications (Indocin, Advil, Motrin, Aspirin, Naprosyn, etc.) as these may inhibit the chance of a solid fusion. Tylenol is okay to take for pain. MANAGING PAIN AFTER SPINAL SURGERY 1. Narcotic medication is intended for short-term use and will be provided for surgical pain. Surgical pain usually lasts for a period of 4-6 weeks. Narcotic medication includes Percocet, Vicodin, Darvocet, Tylenol #3 or Lortab. 2. Longer-term pain is more appropriately treated with non-narcotic medication such as Tylenol ES. 3. Muscle spasm is not appropriately treated with narcotics. Muscle relaxers such as Soma, Flexeril or Skelaxin can be used along with Tylenol ES. 4. Remember that we all live with some "aches and pains". This is not unusual or uncommon after an injury or as we get older. a. Back pain is expected and may include muscle spasms for 4 to 6 weeks after surgery. The pain should gradually improve. If the pain worsens for no apparent reason, please contact the office. b. Intermittent leg pain may also be experienced and should not be concerned about unless it worsens for no apparent reason. If so, please contact the office. 5. We will provide appropriate medication within the normal guidelines of their prescribed use. We will also be very cautious and aware of potential abuse and extended duration of patients' medication needs. a. Pain medications are for your comfort and to assist with sleep and rest so that the tissue can heal. They are not provided in order to return to normal activity and should not be used through the day. To do so or worsening pain at night can result from ongoing tissue damage and development of tolerance to the prescribed medicine. 6. Please allow 2-3 days to process refills. Prescriptions will not be mailed but must be picked up at the office. FOLLOW UP VISIT: Keep your scheduled follow-up appointment. Any questions, please call the office at . Current Hospital Diet Patient's current hospital diet: Diabetes Type 2 Diet, N/A Discharge Diet Recommended Diet: Regular Diet Procedures Procedures Performed: #1 lumbar decompression medial facetectomies foraminotomies L2 3 L3 4 045 L5-S1. 2 posterior spinal fusion L2-3 L3 4 L4 5 L5-S1. #3 placement of posterior segmental instrumentation L2 to S1 including a cross-link. #4 interbody fusion L4 5. #5 placement of peek cage 11 x 22 mm at L4 5. 6 placement of locally harvested morcellized autograft in the posterior lateral gutters. #7 placement of infuse collagen sponge combined with Master graft in the posterior lateral gutters and DBM in the interbody space. Pending Studies Studies pending at discharge: no Laboratory Results Hemoglobin A1c Test 04/12/17 05:48 Range/Units Estimated Average Glucose 157 mg/dl Hemoglobin A1c 7.1 H 4.5-5.6 % Medical Emergencies . Who to Call and When: Medical Emergencies: If at any time you feel your situation is an emergency, please call 911 immediately. . Non-Emergent Contact Non-Emergency issues call your: Primary Care Provider . "Provider Documentation" section prepared by Marc Rutledge. . VTE Core Measure Inpt VTE Proph given/why not?: Jluis Ayers, REJI's
--- NOTE | 2017-04-12 20:56 | Progress Note ---
Medicine Progress Note Date & Time of Visit: Apr 12, 2017 at 20:50. Subjective Pt was seen and examined denies any chest pain, palpitation Objective Last 8 Hrs Date Time Temp Pulse Resp B/P (MAP) Pulse Ox O2 Delivery O2 Flow Rate FiO2 04/12/17 15:00 36.5 67 18 101/61 (74) 93 Room Air Physical Exam: General- no acute distress Head- atraumatic Eyes- PERRL, EOMI ENT- oropharynx clear Neck- supple, no JVD Lungs- clear to auscultation Abdomen- normal bowel sounds Extremities-no calf tenderness Skin- warm & dry Laboratory Results: Last 24 Hours Test 04/12/17 00:29 04/12/17 03:45 04/12/17 05:48 04/12/17 07:46 Bedside Glucose 157 mg/dl 150 mg/dl 179 mg/dl White Blood Count 10.94 K/uL Red Blood Count 3.50 M/uL Hemoglobin 10.7 g/dL Hematocrit 32.3 % Mean Corpuscular Volume 92.3 fL Mean Corpuscular Hemoglobin 30.6 pg Mean Corpuscular Hemoglobin Concent 33.1 g/dl Platelet Count 177 K/uL Mean Platelet Volume 9.4 fL Neutrophils (%) (Auto) 83.2 % Lymphocytes (%) (Auto) 11.9 % Monocytes (%) (Auto) 4.7 % Eosinophils (%) (Auto) 0.0 % Basophils (%) (Auto) 0.0 % Neutrophils # (Auto) 9.11 K/uL Lymphocytes # (Auto) 1.30 K/uL Monocytes # (Auto) 0.51 K/uL Eosinophils # (Auto) 0.00 K/uL Basophils # (Auto) 0.00 K/uL RDW Standard Deviation 45.2 fL RDW Coefficient of Variation 13.6 % Immature Granulocyte % (Auto) 0.2 % Immature Granulocyte # (Auto) 0.02 K/uL Sodium Level 140 mmol/L Potassium Level 4.0 mmol/L Chloride Level 106 mmol/L Carbon Dioxide Level 28 mmol/L Anion Gap 6.0 mmol/L Blood Urea Nitrogen 15 mg/dl Creatinine 1.10 mg/dl Est Creatinine Clear Calc Drug Dose 71.5 ml/min Estimated GFR () 76.2 Estimated GFR (Non- 65.8 BUN/Creatinine Ratio 13.5 Random Glucose 164 mg/dl Estimated Average Glucose 157 mg/dl Hemoglobin A1c 7.1 % Calcium Level 7.8 mg/dl Test 04/12/17 11:59 04/12/17 17:29 Bedside Glucose 131 mg/dl 159 mg/dl Assessment & Plan S/p day #1 Decompression fusion L2-S1 -followed by ortho - incentive spirometry -pain control - PT/ OT -Hbg 10.7 DM II, controlled -on sliding scale insulin plus basal -pharmacy consulted by ortho for glycemic management - Stable CAD s/p RCA stent -negative nuclear stress test in 2016 -continue baby aspirin, atorvastatin - Stable H/o paroxysmal afib -rhythm controlled on sotalol - Coumadin on hold - Will resume coumadin tomorrow if bleeding stable Hx PE Coumadin was held Ortho plan to restart coumadin tomorrow if bleed stable. DVT ppx -as per ortho Code Status Full code Current Inpatient Medications: Current Inpatient Medications Medications (Trade) Dose Ordered Sig/Sunita Route Start Time Stop Time Status Last Admin Dose Admin Promethazine HCl 12.5 mg/Sodium Chloride 50.5 ml @ 202 mls/hr Q6H PRN IV 04/11/17 11:45 05/11/17 11:44 Ondansetron HCl (Zofran Inj) 4 mg Q6H PRN IV 04/11/17 11:45 05/11/17 11:44 Metoclopramide HCl (Reglan Inj) 10 mg Q6H PRN IV 04/11/17 11:45 05/11/17 11:44 Lorazepam (Ativan Tab) 0.5 mg Q8H PRN PO 04/11/17 11:45 05/11/17 11:44 Lorazepam 0.5 mg/ Syringe 0.25 ml @ 1 mls/min Q8H PRN IV 04/11/17 11:45 05/11/17 11:44 Pneumococcal Polysaccharide Vaccine 1 ea PRN PRN N/A 04/11/17 11:45 05/11/17 11:44 Influenza Virus Vacc Triv Types A&B 1 ea PRN PRN N/A 04/11/17 11:45 05/11/17 11:44 Polyethylene (Miralax Powder Packet) 17 gm Q6 PO 04/13/17 06:00 05/13/17 05:59 Bisacodyl (Dulcolax Supp) 10 mg DAILY PRN SD 04/11/17 11:45 05/11/17 11:44 Magnesium Hydroxide (Milk Of Magnesia Susp) 30 ml DAILY PRN PO 04/11/17 11:45 05/11/17 11:44 Hydromorphone HCl (Dilaudid Inj) 0.5 mg Q3H PRN IV 04/12/17 06:00 04/26/17 05:59 Oxycodone HCl (Roxicodone Immediate Rel Tab) 5-10mg prn moderate to sev... Q4H PRN PO 04/12/17 06:00 04/26/17 05:59 04/12/17 15:32 5 MG Acetaminophen (Tylenol Tab) 1,000 mg Q8H PRN PO 04/11/17 11:45 05/11/17 11:44 Acetaminophen 100 ml @ 400 mls/hr Q8H PRN IV 04/11/17 11:45 05/11/17 11:44 Naloxone HCl (Narcan Inj) 0.1 mg Q5M PRN IV 04/11/17 11:45 05/11/17 11:44 Senna/Docusate Sodium (Senokot S Tab) 2 tab HS PO 04/11/17 21:00 05/11/17 20:59 04/11/17 21:35 2 TAB Sodium Biphosphate/ Sodium Phosphate (Fleet Enema) 132 ml ONE PRN SD 04/11/17 11:45 05/11/17 11:44 Hydroxyzine HCl (Vistaril Tab) 25 mg Q8H PRN PO 04/11/17 11:45 05/11/17 11:44 Al Hydroxide/Mg Hydroxide (Maalox Susp) 30 ml Q6H PRN PO 04/11/17 11:45 05/11/17 11:44 Famotidine (Pepcid Tab) 20 mg Q12 PRN PO 04/11/17 11:45 05/11/17 11:44 Diphenhydramine HCl (Benadryl Cap) 25 mg Q6H PRN PO 04/11/17 11:45 05/11/17 11:44 Aspirin (Ecotrin Tab) 81 mg HS PO 04/11/17 21:00 05/11/17 20:59 04/11/17 21:36 81 MG Atorvastatin Calcium (Lipitor Tab) 80 mg HS PO 04/11/17 21:00 05/11/17 20:59 04/11/17 21:35 80 MG Budesonide/ Formoterol Fumarate (Symbicort 160/ 4.5 Inh) 2 puffs BID INH 04/11/17 21:00 05/11/17 20:59 04/12/17 08:18 2 PUFFS Finasteride (Proscar Tab) 5 mg QAM PO 04/12/17 09:00 05/12/17 08:59 04/12/17 08:21 5 MG Levothyroxine Sodium (Synthroid Tab) 50 mcg DAILYBB PO 04/12/17 06:00 05/12/17 05:59 04/12/17 05:58 50 MCG Lisinopril (Zestril Tab) 20 mg HS PO 04/11/17 21:00 05/11/17 20:59 04/11/17 21:36 20 MG Sotalol HCl (Betapace Tab) 40 mg BID PO 04/11/17 21:00 05/11/17 20:59 04/12/17 08:20 40 MG Tiotropium [place] (Spiriva Handihaler Inhaler) 1 puff QAM INH 04/12/17 09:00 05/12/17 08:59 04/12/17 08:19 1 PUFF Miscellaneous Information (Consult Glycemic Management Pharmacy) 1 ea UD PRN N/A 04/11/17 11:51 05/11/17 11:50 Hydromorphone HCl (Dilaudid Inj) 1 mg Q3H PRN IV 04/12/17 06:00 04/26/17 05:59 Insulin Aspart (novoLOG ASPART) SLIDING SCALE ACHS SC 04/11/17 14:00 05/11/17 13:59 04/12/17 18:52 8 UNITS Insulin Glargine (Lantus Solostar Pen) 10 units QPM SC 04/12/17 21:00 04/12/17 21:01 Metformin HCl (Glucophage Extended Rel Tab) 1,000 mg BIDM PO 04/13/17 08:30 05/13/17 08:29
[2017-04-12] MEDS: DOCUSATE SODIUM/SENNA 50/8.6MG TAB PO SCH (21:49)
[2017-04-12] MEDS: ASPIRIN 81 MG ECTAB PO SCH (21:49)
[2017-04-12] MEDS: ATORVASTATIN 40 MG TAB PO SCH (21:49)
[2017-04-12] MEDS: LISINOPRIL 20 MG TAB PO SCH (21:50)
[2017-04-12 22:53] VITALS: BP 124/68; PULSE 68; TEMP 36.6; O2SAT 95
[2017-04-13] MEDS: OXYCODONE HCL IR 5 MG TAB (IMMEDIATE RELEASE) PO PRN ×2 (05:32→20:42)
[2017-04-13] MEDS: LEVOTHYROXINE 50 MCG TAB PO SCH (05:33)
[2017-04-13] MEDS: POLYETHYLENE (MIRALAX) 17 GM PACK PO SCH ×3 (05:33→17:28)
[2017-04-13 08:07] VITALS: BP 116/64; PULSE 64; TEMP 37; O2SAT 95
[2017-04-13] MEDS: BUDESONIDE/FORMOTEROL FUMARATE 160/4.5 60 PUFFS/INHALER INH SCH ×2 (08:56→21:00)
[2017-04-13] MEDS: TIOTROPIUM BROMIDE 5 PUFF/90 MCG INH INH SCH (08:56)
[2017-04-13] MEDS: FINASTERIDE 5 MG TAB PO SCH (08:57)
[2017-04-13] MEDS: SOTALOL HCL 80 MG TAB PO SCH ×2 (08:58→21:59)
[2017-04-13] MEDS: METFORMIN HCL 500 MG TABCR PO SCH ×2 (08:59→17:26)
[2017-04-13] MEDS: INSULIN ASPART 100 UNITS/ML 3 ML PEN SC SCH ×4 (09:05→20:55)
[2017-04-13 10:04] VITALS: O2SAT 95
--- NOTE | 2017-04-13 10:58 | Pharmacy Progress Note ---
Glycemic Control Progress Note Date of Service Apr 13, 2017. Scope Glycemic Pharmacist consulted for glycemic control to write orders per [facility] inpatient glycemic control protocol. Objective Accuchecks BSG (last 24hrs): Test 04/12/17 11:59 04/12/17 17:29 04/12/17 20:56 04/13/17 08:13 Bedside Glucose 131 mg/dl (70-99) 159 mg/dl (70-99) 196 mg/dl (70-99) 190 mg/dl (70-99) HbA1c: Test 04/12/17 05:48 Hemoglobin A1c 7.1 % (4.5-5.6) H Recent Pertinent Medications The patient is currently receiving: * Basal insulin: 04/11 Lantus 25 units x 1 04/12 Lantus 18 units in the AM, 10 units in the PM * Correctional Insulin: Novolog Correction per scale ACHS Goal Range: Low 110 mg/dL - High 140 mg/dL Correction Factor: 20 mg/dL/unit * Prandial insulin: Per carb ratio of 1 unit per 7 grams CHO consumed * Oral Agents: Metformin ER 1 gm BID - resumed this AM Outpatient Anti-Diabetic Meds Metformin ER 1 gm BID Assessment & Plan ASSESSMENT: * See progress note from 04/11 for more background info, in short: * Pt receiving SQ basal bolus insulin regimen for hyperglycemia secondary to baseline DM (outpatient regimen on hold), recent surgery, steroids * Patient received 67 units of insulin yesterday w/ IV Decadron being d/c'd as of yesterday mid-day * The plan for today was to resume outpatient metformin and d/c his carb ratio since BSGs should be improved after steroids d/c'd * His fasting remains elevated today, telling me that we're still seeing some effects from the steroids * Will plan to give additional basal this AM based upon patient's wt and stress level of 1. Further dosing dependent upon BSG. * I initially removed the CR this AM but I will plan to add one back - slightly less aggressive since the metformin has been resumed PLAN FOR INPATIENT GLYCEMIC CONTROL: * Lantus 10 units x 1 this AM, then 0 or 10 units BID depending on BSG * Continue correction factor of 20 mg/dl/unit * Change carb ratio to 1 unit per 10 grams CHO consumed * Continue goal range of Low 110 mg/dL - High 140 mg/dL * Continue metformin ER 1 gm BID RECOMMENDATIONS FOR DISCHARGE: * See note from 04/11 Thank you.
[2017-04-13] MEDS ORDERED: INSULIN GLARGINE SOLOSTAR 100 UNITS/ML 3 ML PEN SC ONE (11:00)
[2017-04-13 15:16] VITALS: BP 121/68; PULSE 75; TEMP 36.8; O2SAT 95
--- NOTE | 2017-04-13 16:12 | Progress Note ---
Internal Med Progress Note Date of Service: Apr 13, 2017. Provider Documentation: SUBJECTIVE: Seen and examined at bedside. States he had an episode of transient dizziness while using restroom this morning. Currently denies any chest pain, SOB, dizziness, nausea, vomiting. No BM yet. Family at bedside. OBJECTIVE: Vital Signs-as noted below Physical Exam: General Appearance:Moderately built and nourished, no apparent distress Head: normocephalic, Atraumatic Eyes: normal inspection, EOMI, PERRL Neck: supple, Trachea midline Respiratory/Chest: Normal breath sounds, CTA Cardiovascular: S1, S2, No murmur Abdomen/GI:Soft, Non tender, Bowel sounds present Back:surgical site in bandage, +drain Extremities/Musculoskelatal:normal inspection, no edema Neurologic/Psych:AAOX3, grossly no focal neurological deficits Skin: normal color, warm Lab data as noted below. ASSESSMENT & PLAN: S/P Decompression fusion L2-S1 Day #2 Continue incentive spirometry pain control PT/ OT Bowel regimen to prevent constipation Hbg 10.7 post OP Monitor Hb Wound care DM II, controlled on sliding scale insulin Resumed metformin HbA1C:7.1 CAD s/p RCA stent negative nuclear stress test in 2016 continue aspirin, atorvastatin Stable H/o paroxysmal afib Continue rate control with sotalol Plan to resume Coumadin today if ok with surgery Monitor INR Hx PE Plan to resume Coumadin DVT Px: Start Coumadin if ok with Ortho Code Status Full code Disposition: Per Ortho Vital Signs: Date Time Temp Pulse Resp B/P (MAP) Pulse Ox O2 Delivery O2 Flow Rate FiO2 04/13/17 15:16 36.8 75 18 121/68 (85) 95 Room Air 04/13/17 10:04 95 Room Air 04/13/17 08:30 Room Air 04/13/17 08:07 37.0 64 14 116/64 (81) 95 Room Air 04/12/17 23:47 Room Air 04/12/17 22:53 36.6 68 20 124/68 (86) 95 Room Air Lab Results: Results Past 24 Hours Test 04/12/17 17:29 04/12/17 20:56 04/13/17 08:13 04/13/17 12:05 Range/Units Bedside Glucose 159 196 190 208 70-99 mg/dl
--- NOTE | 2017-04-13 16:29 | Progress Note ---
Progress Note Date of Service Apr 13, 2017. Progress Note Patient is postop day 2. Back pain is controlled. Leg pain improved. He's having flatus but no bowel movement as of yet. Vital signs are stable WILLIAM drain decreasing appropriate. On exam is good strength testing. Assessment status post lumbar decompression fusion. Plan this time will continue with physical therapy consider possible home Sunday with home health. We're beginning Coumadin this evening.
[2017-04-13] MEDS ORDERED: NURSING VERBAL MED ORDER ONE (16:45)
[2017-04-13] MEDS ORDERED: WARFARIN SOD 5 MG TAB PO ONE (17:00)
[2017-04-13] MEDS: INSULIN GLARGINE SOLOSTAR 100 UNITS/ML 3 ML PEN SC SCH (20:56)
[2017-04-13 21:00] VITALS: BP 124/64; PULSE 75
[2017-04-13] MEDS: ASPIRIN 81 MG ECTAB PO SCH (21:00)
[2017-04-13] MEDS: LISINOPRIL 20 MG TAB PO SCH (21:01)
[2017-04-13] MEDS: ATORVASTATIN 40 MG TAB PO SCH (21:03)
[2017-04-13] MEDS: DOCUSATE SODIUM/SENNA 50/8.6MG TAB PO SCH (21:03)
[2017-04-13 23:33] VITALS: BP 117/67; PULSE 76; TEMP 37.6; O2SAT 91
[2017-04-14] MEDS: POLYETHYLENE (MIRALAX) 17 GM PACK PO SCH ×2 (00:04→05:52)
[2017-04-14] MEDS: OXYCODONE HCL IR 5 MG TAB (IMMEDIATE RELEASE) PO PRN ×3 (04:13→12:52)
[2017-04-14] MEDS: LEVOTHYROXINE 50 MCG TAB PO SCH (05:53)
[2017-04-14] MEDS ORDERED: NURSING VERBAL MED ORDER ONE (06:00)
[2017-04-14 06:29] LABS: BASO % 0.3 %; BASO ABS # 0.03 K/uL (0-0.2); COMPLETE YES; EOS % 1.6 %; HEMATOCRIT 28.3 % (42-52); IG% 0.5 %; LYMPH % 23.1 %; LYMPH ABS # 2.37 K/uL (1.2-3.4); MEAN CELL VOLUME 92.8 fL (80-100); MEAN CORPUSCULAR HEMOGLOBIN 31.1 pg (25-34); MEAN CORPUSCULAR HGB CONC 33.6 g/dl (32-36); MEAN PLATELET VOLUME 9.1 fL (7.4-10.4); MONO % 12.3 %; NEUT % 62.2 %; PLATELET COUNT 162 K/uL (130-400); RED BLOOD COUNT 3.05 M/uL (4.7-6.1); WHITE BLOOD COUNT 10.28 K/uL (4.8-10.8)
[2017-04-14 06:42] LABS: INR 0.9 (0.9-1.1); PROTHROMBIN TIME (PATIENT) 10.1 SECONDS (9.0-12.0)
[2017-04-14 06:55] VITALS: BP 130/78; PULSE 67; TEMP 36.8; O2SAT 91
[2017-04-14] MEDS: BUDESONIDE/FORMOTEROL FUMARATE 160/4.5 60 PUFFS/INHALER INH SCH (08:45)
[2017-04-14] MEDS: TIOTROPIUM BROMIDE 5 PUFF/90 MCG INH INH SCH (08:45)
[2017-04-14] MEDS: SOTALOL HCL 80 MG TAB PO SCH (08:46)
[2017-04-14] MEDS: FINASTERIDE 5 MG TAB PO SCH (08:46)
[2017-04-14] MEDS: INSULIN GLARGINE SOLOSTAR 100 UNITS/ML 3 ML PEN SC SCH (08:58)
[2017-04-14] MEDS: INSULIN ASPART 100 UNITS/ML 3 ML PEN SC SCH ×2 (08:58→13:02)
[2017-04-14] MEDS: METFORMIN HCL 500 MG TABCR PO SCH (08:59)
--- NOTE | 2017-04-14 10:03 | Discharge Summary ---
Orthopedic Discharge Summary Admission Date/Reason Apr 11, 2017 at 08:30 Lumbar Spinal Stenosis. Discharge Date/Disposition Apr 14, 2017 Home with services Diagnosis Principal Diagnosis: Lumbar stenosis Admission Physical Exam As per Admitting History & Physical. Hospital Course Patient underwent multilevel lumbar decompression fusion. His hospital course was uneventful. He progressed appropriately. WILLIAM drain decreasing appropriate. Subsequently discharged home postoperatively #3. Discharge Instructions Please refer to the electronic Patient Visit Report (Discharge Instructions) for additional information.
[2017-04-14 12:02] VITALS: BP 130/78; PULSE 67; TEMP 36.8; O2SAT 91
[2017-04-14] MEDS ORDERED: WARFARIN SOD 5 MG TAB PO SCH (16:00)
== END 2017-04-14 13:40 | disposition home health service (06) | DRG 460 ==
LOC: C.ACU 07:17 → C.3E 08:30 → ENRESERV 12:49
PROVIDERS: ADMIT Orthopaedic Surgery Orthopaedic Surgery of the Spine; ATTEND Orthopaedic Surgery Orthopaedic Surgery of the Spine
PROC: 0SG3071 Fusion of Lumbosacral Joint with Autologous Tissue Substitute, Posterior Approach, Posterior Column, Open Approach (ICD-10-PCS; principal; 2017-04-11 09:15)
PROC: 0SG1071 Fusion of 2 or more Lumbar Vertebral Joints with Autologous Tissue Substitute, Posterior Approach, Posterior Column, Open Approach (ICD-10-PCS; principal; 2017-04-11 09:15)
PROC: 0ST20ZZ Resection of Lumbar Vertebral Disc, Open Approach (ICD-10-PCS; principal; 2017-04-11 09:15)
PROC: 0SG00AJ Fusion of Lumbar Vertebral Joint with Interbody Fusion Device, Posterior Approach, Anterior Column, Open Approach (ICD-10-PCS; principal; 2017-04-11 09:15)
DX: M48.06 Spinal stenosis, lumbar region (principal); E11.9 Type 2 diabetes mellitus without complications; J44.9 Chronic obstructive pulmonary disease, unspecified; I25.10 Atherosclerotic heart disease of native coronary artery without angina pectoris; I11.9 Hypertensive heart disease without heart failure; E03.9 Hypothyroidism, unspecified; I70.1 Atherosclerosis of renal artery; I48.0 Paroxysmal atrial fibrillation; E78.5 Hyperlipidemia, unspecified; E66.9 Obesity, unspecified; Z79.899 Other long term (current) drug therapy; Z79.84 Long term (current) use of oral hypoglycemic drugs; Z79.82 Long term (current) use of aspirin; Z86.718 Personal history of other venous thrombosis and embolism; Z86.711 Personal history of pulmonary embolism; Z95.5 Presence of coronary angioplasty implant and graft; Z68.35 Body mass index [BMI] 35.0-35.9, adult; Z87.891 Personal history of nicotine dependence; Z83.3 Family history of diabetes mellitus; Z82.49 Family history of ischemic heart disease and other diseases of the circulatory system; Z82.3 Family history of stroke

== ENCOUNTER 2019-11-12 10:05 | Observation (INO) ==
--- NOTE | 2019-10-12 20:49 | PAT Medication Instructions ---
Medication Instructions Date of Service October 12, 2019 Home Medications alirocumab [Praluent Pen] 75 mg SUBCUT UD aspirin 81 mg PO HS atorvastatin 80 mg PO HS budesonide-formoterol [Symbicort] 2 puff INHALATION DAILY cholecalciferol (vitamin D3) 2,000 unit PO QAM cinnamon bark [Cinnamon] 1,000 mg PO BID cyanocobalamin (vitamin B-12) 1,000 mcg PO QAM finasteride 5 mg PO QAM glipizide 2.5 mg PO PM levothyroxine 75 mcg PO QAM lisinopril 40 mg PO HS metformin 1,000 mg PO BID sotalol 40 mg PO BID temazepam 15 mg PO HS tiotropium bromide [Spiriva Respimat] 2 puff INHALATION DAILY warfarin 5 mg PO HS Continue as directed alirocumab [Praluent Pen] 75 mg SUBCUT UD ASK your prescriber and surgeon warfarin 5 mg PO HS aspirin 81 mg PO HS STOP taking 2 weeks before surgery cinnamon bark [Cinnamon] 1,000 mg PO BID DO NOT take the morning of surgery cholecalciferol (vitamin D3) 2,000 unit PO QAM cyanocobalamin (vitamin B-12) 1,000 mcg PO QAM metformin 1,000 mg PO BID Take morning of surgery With a small sip of water, OTHERWISE NOTHING TO EAT OR DRINK AFTER MIDNIGHT: budesonide-formoterol [Symbicort] 2 puff INHALATION DAILY finasteride 5 mg PO QAM levothyroxine 75 mcg PO QAM sotalol 40 mg PO BID tiotropium bromide [Spiriva Respimat] 2 puff INHALATION DAILY Take evening before surgery atorvastatin 80 mg PO HS budesonide-formoterol [Symbicort] 2 puff INHALATION DAILY glipizide 2.5 mg PO PM lisinopril 40 mg PO HS metformin 1,000 mg PO BID sotalol 40 mg PO BID temazepam 15 mg PO HS tiotropium bromide [Spiriva Respimat] 2 puff INHALATION DAILY Other Notes If you have any questions please call us at [phone] or [phone] or [phone] or [phone]
--- NOTE | 2019-10-13 12:02 | Anesthesiology Consultation ---
Date of Service October 13, 2019 Assessment & Plan (1) Encounter for pre-operative examination: Note sent to PCP re: hyperkalemia. Patient seen for PCP clearance on 10/21 -- "Repeat BMP today, if K+ is normal, will clear for surgical procedure." Repeat BMP -- K+ 5.5. Patient not cleared for surgery. Spoke to Yaneyl at Dr. Rutledge's office; they will cancel/ R/S patient. Had faxed for most recent cardio note -- only received pages 1 and 3. When patient is r/s will need to refax for page 2, or new cardio note if he has been seen again by then. Chart Review Chart Review: Pending: Refer to Additional Notes / Consult section and Patient seen in Pre Admission Testing Teaching & Discussion Instructed NPO after midnight before surgery, except medications with 15 cc of water. Medication instructions provided according to the PAT guidelines. History Surgery Operation Date: 10/27/19 09:35 Proposed Procedures p Right Sacroiliac Joint Fusion - Marc Rutledge, Height/Weight Height: 5 ft 9 in Weight: 110.7 kg Allergies Allergy/AdvReac Type Severity Reaction Status Date / Time morphine Allergy Unknown ITCHING Unverified 09/08/19 11:22 LOCALIZED SWELLING RASH Sulfa (Sulfonamide Allergy Unknown UNKNOWN Unverified 09/08/19 11:22 Antibiotics) Medications Home Medications Medication Instructions Recorded Confirmed Last Taken alirocumab [Praluent Pen] 75 mg SUBCUT UD 09/08/19 09/08/19 Unknown aspirin 81 mg PO HS 09/08/19 09/08/19 Unknown atorvastatin 80 mg PO HS 09/08/19 09/08/19 Unknown budesonide-formoterol [Symbicort] 2 puff INHALATION DAILY 09/08/19 09/08/19 Unknown cholecalciferol (vitamin D3) 2,000 unit PO QAM 09/08/19 09/08/19 Unknown [Vitamin D3] cinnamon bark [Cinnamon] 1,000 mg PO BID 09/08/19 09/08/19 Unknown cyanocobalamin (vitamin B-12) 1,000 mcg PO QAM 09/08/19 09/08/19 Unknown [Vitamin B-12] finasteride 5 mg PO QAM 09/08/19 09/08/19 Unknown glipizide 2.5 mg PO PM 09/08/19 09/08/19 Unknown levothyroxine 75 mcg PO QAM 09/08/19 09/08/19 Unknown lisinopril 40 mg PO HS 09/08/19 09/08/19 Unknown metformin 1,000 mg PO BID 09/08/19 09/08/19 Unknown sotalol 40 mg PO BID 09/08/19 09/08/19 Unknown temazepam 15 mg PO HS 09/08/19 09/08/19 Unknown tiotropium bromide [Spiriva 2 puff INHALATION DAILY 09/08/19 09/08/19 Unknown Respimat] warfarin 5 mg PO HS 09/08/19 09/08/19 Unknown Past Medical History Medical History (Updated 10/23/19 @ 10:38 by Master Ryan) COPD (chronic obstructive pulmonary disease) (Chronic) Spiriva and Symbicort daily, no rescue inhaler use. Pt reports stable breathing tests at pulmonology for the past few years. Coronary artery disease (Chronic) s/p RCA stent in 2007 Per 2018 cath, Mild luminal disease in LAD and LCx. RCA 50%. Patent stent. EF 60% DM II (diabetes mellitus, type II), controlled (Chronic) History of carotid artery disease placed stent in right carotid HLD (hyperlipidemia) (Chronic) HTN (hypertension) (Chronic) Hypothyroidism Obesity Osteoarthritis PE (pulmonary thromboembolism) (Chronic) "x4; most recent PE in 2003" Renal artery stenosis (Chronic) stent in left kidney Stroke 14 months ago left sided weakness Per pt was told 2/2 carotid disease; subsequent carotid stent placement. Exercise / Class Metabolic Activity III < 4 Walking/Shop/Light housework (Pt denies any chest pain, +LANCASTER with ambulation on one level. Does not do stairs.) Past Surgical History Surgical History History of AAA (abdominal aortic aneurysm) repair (Chronic) History of appendectomy (Chronic) History of arthroscopy of left shoulder (Chronic) History of common carotid artery stent placement Hx of cardiac cath stent placed at [facility] [address] Tobar Hx of colonoscopy S/P IVC filter S/P lateral meniscectomy of left knee (Chronic) Status post lumbar spine surgery for decompression of spinal cord (Chronic) "Decompression fusion L2-S1" Past Anesthesia History No Hx of Anesthesia Complications and No Family Hx of Anesthesia Complications History of PONV No Hx of PONV and No Hx of Motion Sickness Social History Smoking Status: Former smoker Do You Dip or Chew Tobacco: No Smoking End Date: quit 2003 Hx Alcohol Use: No Hx Substance Use: No substance use type: does not use Review of Systems Pt denies any recent chest pain, shortness of breath above baseline, palpitations, cough, fever or URI. +chronic nonallergic rhinitis. +pink eye, finishing antibiotics now Physical Exam Vital Signs BP: 172/79 (pt reports white coat HTN), rpt BP 10 mins later 152/82, pt reports normally 130s systolic at home. P: 68bpm SPO2: 95% RA T: 97.5 F R: 18 Constitutional + obese ENMT Mouth: + dentures and + edentulous Thyromental Distance: > or= 3.5 Finger Breadths (3.5) Mallampati Class: I Neck normal visual inspection, + thick neck, + limited neck extension (mildly) and + facial hair (short goatee) Respiratory normal respiratory effort Auscultation: + rhonchi (expiratory l lung) and + wheezes (expiratory L lung) Cardiovascular Rate/Rhythm: regular rate and regular rhythm Heart Sounds: no murmur Vessels: no carotid bruit Extremities: no edema Testing Laboratory Results 10/13/19 11:45 10/13/19 11:45 PT 24.0 Seconds (9.0-12.0) H 10/13/19 11:45 INR 2.5 (0.9-1.1) H 10/13/19 11:45 APTT 35.4 Seconds (21.0-31.0) H 10/13/19 11:45 Urine Color Yellow 10/13/19 11:45 Urine Appearance Clear (Clear) 10/13/19 11:45 Urine pH 5.0 (4.5-7.5) 10/13/19 11:45 Ur Specific [place] 1.020 (1.000-1.030) 10/13/19 11:45 Urine Protein Trace (Negative) H 10/13/19 11:45 Urine Glucose (UA) Negative (Negative) 10/13/19 11:45 Urine Ketones Negative (Negative) 10/13/19 11:45 Urine Nitrite Negative (Negative) 10/13/19 11:45 Ur Leukocyte Esterase Negative (Negative) 10/13/19 11:45 Urine WBC (Auto) 0 /hpf (0-5) 10/13/19 11:45 Urine RBC (Auto) 0-4 /hpf (0-4) 10/13/19 11:45 U Hyaline Cast (Auto) 0 /lpf (0-5) 10/13/19 11:45 U Epithel Cells (Auto) 0-5 /lpf (0-5) 10/13/19 11:45 Urine Bacteria (Auto) Negative (Negative) 10/13/19 11:45 Blood Type A Positive 10/13/19 11:45 Antibody Screen NEGATIVE 10/13/19 11:45 Electrocardiogram Date: 11/21/18 Undetermined rhythm. Ventricular rate of 64 bpm. Right axis deviation. Low voltage QRS. Cannot rule out anterior infarct, age undetermined. Chest X-Ray Date: 10/13/19 Findings: + NAD and + cardiomegaly Echocardiogram Date: 01/10/18 EF: 50% Low normal LV systolic function. Normal LV diameter. Mild concentric LVH. Mild, grade 1 diastolic dysfunction. Normal RV size and function. Mild biatrial enlargement. No significant valvular stenosis or regurgitation. Mild aortic valve sclerosis. Minimal mitral annular and valvular calcification. No PFO/ASD identified. Cardiac Catheterization Date: 11/22/17 Left main normal. LAD and left circumflex have mild luminal disease. Moderate proximal and distal RCA stenosis with LV EF of 60%. Plan: Medical therapy.
[2019-10-13 12:35] LABS: Basophils # (auto) 0.04 K/uL (0-0.2); Basophils % (auto) 0.4 %; Eosinophils # (auto) 0.29 K/uL (0-0.5); Hemoglobin 13.3 g/dL (14.0-18.0); Immature Granulocytes # (auto) 0.05 K/uL (0.00-0.02); Immature Granulocytes % (auto) 0.5 %; Lymphocytes # (auto) 2.19 K/uL (1.2-3.4); Lymphocytes % (auto) 22.5 %; Mean Corpuscular Hemoglobin 32.7 pg (25-34); Mean Corpuscular Hgb Conc 33.3 g/dL (32-36); Mean Corpuscular Volume 98.3 fL (80-100); Mean Platelet Volume 9.1 fL (7.4-10.4); Monocytes # (auto) 0.57 K/uL (0.11-0.59); Monocytes % (auto) 5.9 %; Neutrophils % (auto) 67.7 %; Platelet Count 377 K/uL (130-400); RDW Coefficient of Variation 13.3 % (11.5-14.5); RDW Standard Deviation 47.2 fL (36.4-46.3); Red Blood Count 4.07 M/uL (4.7-6.1); White Blood Count 9.74 K/uL (4.8-10.8)
[2019-10-13 12:36] LABS: Appearance Urine Clear (Clear); Bacteria Urine Automated Negative (Negative); Bilirubin Urine Negative (Negative); Blood Urine Negative (Negative); Cast Urine Automated 0 /lpf (0-5); Color Urine Yellow; Epithelial Cell Urine Auto 0-5 /lpf (0-5); Glucose Urine UA Negative (Negative); Ketones Urine Negative (Negative); Leukocyte Esterase Urine Negative (Negative); Nitrite Urine Negative (Negative); Protein Urine Trace (Negative); RBC Urine Automated 0-4 /hpf (0-4); Urobilinogen Urine Negative (Negative); WBC Urine Automated 0 /hpf (0-5)
--- NOTE | 2019-10-13 12:42 | XRay Report ---
XR chest Pre-admission PA/Lat HISTORY: 78 years-old Male PAT preoperative exam. No acute chest complaints COMPARISON: Chest radiograph 03/28/2017 TECHNIQUE: PA and lateral views of the chest FINDINGS: Cardiac silhouette is enlarged and may have mildly increased in size from comparison. Calcific plaque of the thoracic aorta arch. Chronic interstitial coarsening without pneumothorax, pleural effusion o r overt pulmonary edema. Prominence of the pulmonary vasculature may reflect underlying pulmonary kristy e all hypertension. There is no pneumothorax, pleural effusion or overt pulmonary edema. Artifactual line projects over the left lateral aspect of the film. Degenerative changes of the shoulders and spi ne. Partially imaged IVC filter. IMPRESSION: Cardiomegaly without acute process. ACT 112: Negative or not required by law. The above report was generated using voice recognition software. It may contain grammatical, syntax o r spelling errors. Electronically signed by: Jose Cantrell M.D. 10/13/2019 12:41 PM
[2019-10-13 12:49] LABS: INR 2.5 (0.9-1.1); Partial Thromboplastin Ratio 1.3; Partial Thromboplastin Time 35.4 Seconds (21.0-31.0)
[2019-10-13 12:56] LABS: BUN Creatinine Ratio 18.2 (10-20); Calcium 9.7 mg/dl (8.5-10.1); Creatinine Clr Calc Pharmacy 70.1 ml/min; Est GFR (African American) 75.2; Est GFR (Non-African American) 64.9; Potassium 5.6 mmol/L (3.5-5.1)
[~2019-11-12 10:05] MED LIST changes: +ACETAMINOPHEN 500 MG TAB PO SCH; -ASPI81TA28 PO; -ATOR-26 PO; -CEFAZOLIN 2000 MG/60 ML D5W IV SCH; -CHOL1000 PO; -CINN1CAP2 PO; +CLINDAMYCIN 600 MG/54 ML BAG IV SCH; +CeleBREX 200 MG CAP PO SCH; -FINA5TAB PO; +GABAPENTIN 300 MG CAP PO SCH; -LACTATED RINGER'S 1000ML 1,000 ML IV SCH; -LEVO50TA6 PO; -LISI-725 PO; +LR 15ML/HR IV SCH; -METF1TAB53 PO; -SOTA80TA PO; -SPRIN/30 INH; -SYMIN160 INH; -WARF5TAB7 PO
[2019-11-12 10:55] LABS: INR 1.1 (0.9-1.1); Partial Thromboplastin Ratio 0.9; Prothrombin Time 11.6 Seconds (9.0-12.0)
[2019-11-12] MEDS ORDERED: ONDANSETRON INJ 2 MG/ML 2 ML VIAL IV PRN ×2 (12:05→16:29)
[2019-11-12] MEDS ORDERED: HYDROmorphone INJ 2 MG/ML SYR/VIAL IV PRN (12:05)
[2019-11-12] MEDS ORDERED: ATROPINE SULFATE 0.1 MG/ML 10ML SYR IV PRN (12:05)
[2019-11-12] MEDS ORDERED: ePHEDrine sulfate 50 MG/ML AMP IV PRN (12:05)
[2019-11-12] MEDS ORDERED: fentaNYL citrate 100 MCG/2 ML VIAL IV PRN (12:05)
--- NOTE | 2019-11-12 13:08 | History & Physical Bridge Note ---
Date of Service November 12, 2019 History & Physical Bridge Note I have examined the patient, reviewed the History & Physical and in the interval since the performance of the History & Physical I have noted the following changes of clinical significance: no changes noted
--- NOTE | 2019-11-12 13:09 | History & Physical Report ---
Date of Service November 12, 2019 Assessment & Plan (1) Sacroiliitis: Right sacroiliac joint fusion Present on Admission?: Yes History of Present Illness Chief Complaint: Chronic SI joint pain Primary Care Provider: Emerson Villeda This is a 78-year-old male well-known to me the presents with chronic persistent right SI joint pain after failing extensive course of nonoperative care is here for surgical invention. Allergies Allergy/AdvReac Type Severity Reaction Status Date / Time morphine Allergy Unknown ITCHING Unverified 11/12/19 10:31 LOCALIZED SWELLING RASH Sulfa (Sulfonamide Allergy Unknown UNKNOWN Unverified 11/12/19 10:31 Antibiotics) Home Medications Home Medications Medication Instructions Recorded Confirmed Type alirocumab [Praluent Pen] 75 mg SUBCUT UD 09/08/19 11/12/19 History aspirin 81 mg PO HS 09/08/19 11/12/19 History atorvastatin 80 mg PO HS 09/08/19 11/12/19 History budesonide-formoterol [Symbicort] 2 puff INHALATION DAILY 09/08/19 11/12/19 History cholecalciferol (vitamin D3) 2,000 unit PO QAM 09/08/19 11/12/19 History [Vitamin D3] cinnamon bark [Cinnamon] 1,000 mg PO BID 09/08/19 11/12/19 History cyanocobalamin (vitamin B-12) 1,000 mcg PO QAM 09/08/19 11/12/19 History [Vitamin B-12] finasteride 5 mg PO QAM 09/08/19 11/12/19 History glipizide 2.5 mg PO PM 09/08/19 11/12/19 History levothyroxine 75 mcg PO QAM 09/08/19 11/12/19 History metformin 1,000 mg PO BID 09/08/19 11/12/19 History sotalol [Betapace] 40 mg PO BID 09/08/19 11/12/19 History temazepam 15 mg PO HS 09/08/19 11/12/19 History tiotropium bromide [Spiriva 2 puff INHALATION DAILY 09/08/19 09/08/19 History Respimat] warfarin 5 mg PO HS 09/08/19 11/12/19 History Past Med/Surg History Medical History (Updated 11/12/19 @ 13:09 by Marc M Maty, DO) COPD (chronic obstructive pulmonary disease) (Chronic) Spiriva and Symbicort daily, no rescue inhaler use. Pt reports stable breathing tests at pulmonology for the past few years. Coronary artery disease (Chronic) s/p RCA stent in 2007 Per 2018 cath, Mild luminal disease in LAD and LCx. RCA 50%. Patent stent. EF 60% DM II (diabetes mellitus, type II), controlled (Chronic) History of carotid artery disease placed stent in right carotid HLD (hyperlipidemia) (Chronic) HTN (hypertension) (Chronic) Hypothyroidism Obesity Osteoarthritis PE (pulmonary thromboembolism) (Chronic) "x4; most recent PE in 2003" Renal artery stenosis (Chronic) stent in left kidney Stroke 14 months ago left sided weakness Per pt was told 2/2 carotid disease; subsequent carotid stent placement. Surgical History History of AAA (abdominal aortic aneurysm) repair (Chronic) History of appendectomy (Chronic) History of arthroscopy of left shoulder (Chronic) History of common carotid artery stent placement Hx of cardiac cath stent placed at [facility] [address] Tobar Hx of colonoscopy S/P IVC filter S/P lateral meniscectomy of left knee (Chronic) Status post lumbar spine surgery for decompression of spinal cord (Chronic) "Decompression fusion L2-S1" Social History Preferred Language: French Communication Ability: Effective Cotton Stomper Required: No Beliefs That Will Affect Care: None Current Living Situation: Spouse Other Information That Helps Us Care for You: No Feels Safe at Home: Yes Safety Concerns: Feels Safe At This Time Smoking Status: Former smoker Do You Dip or Chew Tobacco: No ; Smoking End Date: quit 2003 ; Second Hand Exposure: No ; Tobacco Cessation Education Requested by Patient: No Hx Alcohol Use: No Hx Substance Use: No Physical Exam Physical Exam: Patient is alert and oriented neurologically intact. Results & Data Vital Signs (Past 12 Hours) Vital Signs Temp Pulse Resp BP Pulse Ox 11/12/19 10:47 36.6 C 80 18 168/87 H 95
[2019-11-12] MEDS ORDERED: fentaNYL citrate 100 MCG/2 ML VIAL ONE (13:32)
[2019-11-12] MEDS ORDERED: ONDANSETRON INJ 2 MG/ML 2 ML VIAL ONE (13:32)
[2019-11-12] MEDS ORDERED: ROCURONIUM BROMIDE 10 MG/ML 5 ML VIAL ONE (13:32)
[2019-11-12] MEDS ORDERED: SUCCINYLCHOLINE CHLORIDE 20 MG/ML 10 ML VIAL ONE (13:32)
[2019-11-12] MEDS ORDERED: DEXAMETHASONE SOD INJ 4 MG/ML VIAL ONE (13:32)
[2019-11-12] MEDS ORDERED: LARYING-O-JET KIT (LTA) ONE (13:33)
[2019-11-12] MEDS ORDERED: LIDOCAINE HCL 2% 2 ML VIAL/AMP(20MG/ML) INFIL ONE (13:33)
[2019-11-12] MEDS ORDERED: BUPIVACAINE/EPINEPHRINE 0.5% MPF 1:200,000 10 ML VIAL ONE (13:35)
[2019-11-12] MEDS ORDERED: BACITRACIN INJ 50,000 UNIT VIAL ONE (13:36)
[2019-11-12] MEDS ORDERED: FLOSEAL HEMOSTATIC MATRIX 10ML TOP ONE (14:37)
--- NOTE | 2019-11-12 14:37 | Operative Report ---
Post Operative Report Pre & Post Diagnosis Operation Date: 11/12/19 12:45 Pre-Op Diagnosis: Sacroiliac Joint Dysfunction Post-Op Diagnosis: Sacroiliac Joint Dysfunction I identified the patient and participated in the time-out.: No Procedure Operation Date: 11/12/19 12:45 Actual Procedures #1 right open SI joint fusion. #2 placement of 3 percutaneous SI joint screws. #3 placement of 20 mm bony allograft filled with infuse collagen sponge within the right SI joint. Surgeon Marc Rutledge, Buffing Wheel Former Automatic Oswald Chandra Estimated Blood Loss 25 Findings Consistent with Post-Op Diagnosis Specimens None Indications This is a 78-year-old male known to me the presents with above-mentioned diagnosis after failing since course of nonoperative care is here for surgical invention. Description of Procedure Patient was met with identified informed consent obtained. Patient was then taken to the operative suite underwent intubation placed in the prone position the Jose table chest padded bolsters. All bony prominences well-padded eyes inspected to ensure no external pressure placed upon. This point with the assistance of fluoroscopy identified the right SI joint. Proximally 3 cm incision was placed over the posterior aspect of the joint. I dissected down the joint and opened it with a joint finder. I then placed a cannula over the joint finder and curetted out the joint directly and placing a 20 mm in length bony allograft filled with infuse collagen sponge within the joint. After this was tamped into position I placed a lateral incision in line with the posterior slope of the sacrum. A guidewire was then inserted and I verified with my position and inlet outlet views as well as lateral views placing guidewire across the proximal portion of the SI joint. I then used cannulas and drilled a 10 mm fluted drill across the SI joint. I then placed a 50 mm JIMENEZ-coated slotted screws filled with infuse collagen sponge and local autograft across the joint. Demonstrated excellent purchase. I then placed a distal pin in a similar fashion. Again a cannula was used as well as a 10 mm drill and this screw was a 45 mm length JIMENEZ-coated slotted screw filled with infuse collagen sponge and local graft. A third distal screw was placed in a similar fashion. The screw was 35 mm in length again JIMENEZ-coated slotted and filled with local autograft. All screws demonstrated excellent purchase demonstrated appropriate positioning and inlet outlet and lateral views. The incisions were then copiously irrigated and closed with subcutaneous Vicryl and 4 Monocryl for final skin closure. Steri-Strips dressings placed. Patient awakened and taken to PACU in stable condition. Please note Oswald Chandra was present at the entire procedure involved the patient positioning complex portions of the surgery and final skin closure. I attest to the content of the Intraoperative Record and any orders documented therein. Any exceptions are noted below.
--- NOTE | 2019-11-12 15:19 | Fluoroscopy Report ---
FL sacrum CLINICAL HISTORY: RT S SACROILIAC JOINT FUSION COMPARISON STUDY: None FLUOROSCOPY TIME: 84 seconds. NUMBER OF FLUOROSCOPIC IMAGES: 3 FINDINGS: 3 intraoperative fluoroscopic spot images reveal postsurgical changes of a right SI fusion with 3 screws. Note also is made of an aortobiiliac stent graft. There are also postsurgical changes of a lumbar spinal fusion with pedicle screws and rods. IMPRESSION: Intraoperative fluoroscopic spot images demonstrating a right SI joint fusion with 3 scr ews. ACT 112: Negative or not required by law. Electronically signed by: Umberto Jenkins M.D. 11/12/2019 3:17 PM
--- NOTE | 2019-11-12 15:44 | Anesthesiology Progress Note ---
Date of Service November 12, 2019 Anesthesia Post Procedure Vital Signs Vital Signs: Temp Pulse Pulse Resp BP BP Pulse Ox 11/12/19 15:35 81 15 135/71 94 11/12/19 15:25 36.3 C L 77 21 138/70 95 11/12/19 15:15 82 20 149/78 H 96 11/12/19 15:05 82 17 168/78 H 99 11/12/19 14:56 36.5 C 81 16 165/77 H 98 11/12/19 10:47 36.6 C 80 18 168/87 H 95 Transfer of Care Handoff Completed per policy Notes Mental Status: alert / awake / arousable Patient Amnestic to Procedure: Yes Nausea / Vomiting: adequately controlled Pain: adequately controlled Airway Patency, RR, SpO2: stable & adequate BP & HR: stable & adequate Hydration State: stable & adequate Anesthetic Complications: no major complications apparent
[2019-11-12] MEDS ORDERED: ALIROCUMAB 75 MG SQ SCH (16:29)
[2019-11-12] MEDS ORDERED: HYDROmorphone INJ 1 MG/ML SYRINGE IV PRN (16:29)
[2019-11-12] MEDS ORDERED: DO NOT ADMINISTER FLU VACCINE PRN (16:29)
[2019-11-12] MEDS ORDERED: LORazepam 1 MG/2 ML VIAL IV PRN (16:29)
[2019-11-12] MEDS ORDERED: ACETAMINOPHEN 500 MG TAB PO PRN (16:29)
[2019-11-12] MEDS ORDERED: LORazepam 1 MG TAB PO PRN (16:29)
[2019-11-12] MEDS ORDERED: DO NOT ADMINISTER PNEUMOCOCCAL VACCINE PRN (16:29)
[2019-11-12] MEDS ORDERED: OXYCODONE HCL IR 5 MG TAB (IMMEDIATE RELEASE) PO PRN (16:29)
[2019-11-12] MEDS ORDERED: MAGNESIUM HYDROXIDE SUSP 30 ML UDC PO PRN (16:29)
[2019-11-12] MEDS ORDERED: GLUCAGON FOR INJ 1 MG VIAL IM PRN (17:00)
[2019-11-12] MEDS ORDERED: CARBOHYDRATES FOR HYPOGLYCEMIA PO PRN (17:00)
[2019-11-12] MEDS ORDERED: GLUCOSE 40% GEL 15 GM TUBE PO PRN (17:00)
[2019-11-12] MEDS ORDERED: GLUCOSE 10 TABS/TUBE PO PRN (17:00)
[2019-11-12] MEDS ORDERED: PHARMACY GLYCEMIC MGMT CONSULT PRN (17:00)
[2019-11-12] MEDS ORDERED: DEXTROSE 50% 50 ML SYRINGE IV PRN (17:00)
[2019-11-12] MEDS ORDERED: INSULIN GLARGINE SOLOSTAR 100 UNITS/ML 3 ML PEN SC ONE (17:30)
[2019-11-12] MEDS: INSULIN ASPART 100 UNITS/ML 3 ML PEN SC SCH ×2 (18:37→21:20)
[2019-11-12] MEDS ORDERED: ATORVASTATIN 40 MG TAB PO SCH (21:00)
[2019-11-12] MEDS ORDERED: glipiZIDE ER 2.5 MG TABCR PO SCH (21:00)
[2019-11-12] MEDS ORDERED: TEMAZEPAM 15 MG CAPSULE PO SCH (21:00)
[2019-11-12] MEDS ORDERED: ASPIRIN 81 MG ECTAB PO SCH (21:00)
[2019-11-12] MEDS: SOTALOL HCL 80 MG TAB PO SCH (21:08)
[2019-11-12] MEDS: DOCUSATE SODIUM 100 MG CAP PO SCH (21:08)
[2019-11-12] MEDS: CEFAZOLIN 2000MG 2,000 MG/15 ML SYR IV SCH (21:14)
[2019-11-13] MEDS: CEFAZOLIN 2000MG 2,000 MG/15 ML SYR IV SCH (05:29)
[2019-11-13 06:23] LABS: INR 1.1 (0.9-1.1); Prothrombin Time 11.1 Seconds (9.0-12.0)
[2019-11-13] MEDS ORDERED: LEVOTHYROXINE SODIUM 75 MCG TABLET PO SCH (06:30)
[2019-11-13 07:16] LABS: Estimated Average Glucose 143 mg/dl; Hemoglobin A1C 6.6 % (4.5-5.6)
[2019-11-13] MEDS ORDERED: FLUTICASONE/VILANTEROL 100/25MCG 14 PUFFS/INHALER INH SCH (09:00)
[2019-11-13] MEDS ORDERED: UMECLIDINIUM BROMIDE 62.5MCG/BLISTER 7 PUFFS/INHALER INH SCH (09:00)
[2019-11-13] MEDS ORDERED: FINASTERIDE 5 MG TAB PO SCH (09:00)
[2019-11-13] MEDS ORDERED: CHOLECALCIFEROL 1,000 UNITS 25 MCG TAB PO SCH (09:00)
[2019-11-13] MEDS: DOCUSATE SODIUM 100 MG CAP PO SCH (09:02)
[2019-11-13] MEDS: SOTALOL HCL 80 MG TAB PO SCH (09:02)
[2019-11-13] MEDS: INSULIN ASPART 100 UNITS/ML 3 ML PEN SC SCH (09:06)
--- NOTE | 2019-11-13 09:53 | Anesthesiology Progress Note ---
Date of Service November 13, 2019 Anesthesia Post Procedure Vital Signs Vital Signs: Temp Pulse Pulse Pulse Resp BP BP 11/13/19 07:01 36.7 C 61 19 148/78 H 11/13/19 02:53 36.7 C 67 18 135/79 11/12/19 22:58 36.4 C L 80 18 111/72 11/12/19 21:07 88 140/84 11/12/19 20:08 36.3 C L 86 18 109/68 11/12/19 18:20 36.6 C 93 H 16 145/78 H 11/12/19 17:25 36.5 C 79 18 148/83 H 11/12/19 16:50 36.7 C 71 16 152/80 H 11/12/19 16:00 78 14 139/72 11/12/19 15:45 78 13 146/76 H 11/12/19 15:35 81 15 135/71 11/12/19 15:25 36.3 C L 77 21 138/70 11/12/19 15:15 82 20 149/78 H 11/12/19 15:05 82 17 168/78 H 11/12/19 14:56 36.5 C 81 16 165/77 H 11/12/19 10:47 36.6 C 80 18 168/87 H Pulse Ox 11/13/19 07:01 97 11/13/19 02:53 96 11/12/19 22:58 94 11/12/19 21:07 11/12/19 20:08 95 11/12/19 18:20 91 11/12/19 17:25 92 11/12/19 16:50 94 11/12/19 16:00 96 11/12/19 15:45 96 11/12/19 15:35 94 11/12/19 15:25 95 11/12/19 15:15 96 11/12/19 15:05 99 11/12/19 14:56 98 11/12/19 10:47 95 Notes Mental Status: alert / awake / arousable Patient Amnestic to Procedure: Yes Nausea / Vomiting: adequately controlled Pain: adequately controlled Airway Patency, RR, SpO2: stable & adequate BP & HR: stable & adequate Hydration State: stable & adequate Anesthetic Complications: no major complications apparent and Pt Satisfied with anesthetic care
--- NOTE | 2019-11-13 11:04 | Discharge Summary ---
Date of Service November 13, 2019 Admission HPI Per Admitting Provider This is a 78-year-old male well-known to me the presents with chronic persistent right SI joint pain after failing extensive course of nonoperative care is here for surgical invention. Principal Diagnosis Sacroiliitis Discharge Data Allergies Allergy/AdvReac Type Severity Reaction Status Date / Time morphine Allergy Unknown ITCHING Unverified 11/12/19 10:31 LOCALIZED SWELLING RASH Sulfa (Sulfonamide Allergy Unknown UNKNOWN Unverified 11/12/19 10:31 Antibiotics) Procedures Performed Operation Date: 11/12/19 12:45 Actual Procedures p Right Sacroiliac Joint Fusion(Right) - Marc Rutledge DO Ordered Studies 11/12/19 12:45 FL fluoroscopy <1hr Routine FL sacrum Routine Hospital Course (1) Sacroiliitis: Patient underwent right SI joint fusion tolerated this well was taken to the orthopedic floor postoperative. Postop day #1 symptoms are markedly improved. He was taking Tylenol only for pain. He is tolerating physical therapy and occupational therapy well. Subsequently discharged home. Discharge orders instructions from the chart for further review. Total Time Total Time Spent Total Time Spent (In Minutes): 20 minutes Discharge Plan Discharge Items Patient Disposition: Home - Self-Care Reason For Visit: Sacroiliac Joint Dysfunction Discharge Diagnosis: Sacroiliitis Activity: Per Instructions section Lifting: No more than 5 pounds Bathing: May shower/bathe in 3 days Weightbearing: Right toe touch Non-emergency contact: Primary Care Provider Call non-emergency contact if: you have any medication questions Follow-up/Referrals: Emerson Villeda [Primary Care Provider] - Diet: Regular Addtl Attending Provider Instructions: Please use walker when ambulating and maintain toe-touch weightbearing to the right lower extremity. Follow-up in the office in 2 weeks as scheduled. Pending Studies at Discharge: No Stand-Alone Forms: [facility] [employer], Opioid Pain Management, Smoking Cessation Medications and DC Order Prescriptions: New hydrocodone-acetaminophen 5-325 mg tablet See Rx Instructions .ROUTE .COMPLEX PRN (Reason: pain) Qty: 30 RF: 0 Continued atorvastatin 80 mg Tablet 80 mg PO HS RF: 0 sotalol [Betapace] 80 mg Tablet 40 mg PO BID RF: 0 cyanocobalamin (vitamin B-12) [Vitamin B-12] 1,000 mcg Tablet 1,000 mcg PO QAM RF: 0 levothyroxine 75 mcg Tablet 75 mcg PO QAM RF: 0 temazepam 15 mg Capsule 15 mg PO HS RF: 0 glipizide 2.5 mg Tablet Extended Release 24hr 2.5 mg PO PM RF: 0 metformin 1,000 mg Tablet 1,000 mg PO BID RF: 0 warfarin 5 mg Tablet 5 mg PO HS RF: 0 aspirin 81 mg Tablet,Chewable 81 mg PO HS RF: 0 finasteride 5 mg Tablet 5 mg PO QAM RF: 0 cinnamon bark [Cinnamon] 500 mg Capsule 1,000 mg PO BID RF: 0 budesonide-formoterol [Symbicort] 160-4.5 mcg/actuation Hfa Aerosol Inhaler 2 puff INHALATION DAILY RF: 0 cholecalciferol (vitamin D3) [Vitamin D3] 2,000 unit Tablet 2,000 unit PO QAM RF: 0 Spiriva Respimat 2.5 mcg/actuation Mist 2 puff INHALATION DAILY RF: 0 Praluent Pen 75 mg/mL Pen Injector 75 mg SUBCUT UD RF: 0 Discharge Orders: Discharge Order (Routine); Ordered 11/13/19 Ordered By: Marc Dunne/Other Patient Handouts: Anatomy Sacroiliac Joint Admission Data Admit Date/Time: 11/12/19 14:54 Attending Provider: Marc Rutledge Admit Provider: Marc Rutledge Primary Care Provider: Emerson Villeda Other Interventions: Discharge Summary Assessment (RN) Last Done: 11/13/19 10:20
[2019-11-13] MEDS ORDERED: WARFARIN SOD 5 MG TAB PO SCH (21:00)
== END 2019-11-13 12:31 | disposition home or self-care (01) | DRG 460 ==
LOC: ASU 10:05 → INTOOBSV 14:54 → 3E 14:54